=== PATIENT | female | born 1990 | race Caucasian/White ===

== ENCOUNTER 2018-11-27 14:53 | Emergency (ER) | payer SELFPAY ==
[2018-11-27 15:57] LABS: Urine Blood 3+ (NEG); Urine Glucose NEGATIVE (NEG); Urine Protein 1+ (NEG); Urine pH 5.5 (5.0-7.0)
--- NOTE | 2018-11-27 16:02 | ER ---
Nurse's Notes [facility] Name: Eli Cisneros Age: 28 yrs Sex: Female : 1990 Arrival Date: 11/27/2018 Time: 14:57 Bed 15 Private MD: Diagnosis: Low back pain Presentation: 11/27 15:27 Presenting complaint: Patient states: low back pain that began 1 week ago. Transition aa5 of care: patient was not received from another setting of care. Onset of symptoms was November 19, 2018. Risk Assessment: Do you want to hurt yourself or someone else? Patient reports no desire to harm self or others. Initial Sepsis Screen: Does the patient meet any 2 criteria? No. Patient's initial sepsis screen is negative. Does the patient have a suspected source of infection? No. Patient's initial sepsis screen is negative. Care prior to arrival: None. 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 - Social history:: Smoking status: Patient uses tobacco products, smokes one-half pack cigarettes per day. - Ebola Screening: : Patient denies exposure to infectious person Patient denies travel to an Ebola-affected area in the 21 days before illness onset. Screenin:00 Abuse screen: Denies threats or abuse. Denies injuries from another. Nutritional jl7 screening: No deficits noted. Tuberculosis screening: No symptoms or risk factors identified. Fall Risk None identified. Assessment: 16:00 General: Appears in no apparent distress. uncomfortable, Behavior is calm, cooperative, jl7 appropriate for age. Pain: Complains of pain in right low back and left low back and lumbar area Pain currently is 10 out of 10 on a pain scale. Neuro: Level of Consciousness is awake, alert, obeys commands, Oriented to person, place, time, situation. Cardiovascular: Patient's skin is warm and dry. Respiratory: Airway is patent Respiratory effort is even, unlabored, Respiratory pattern is regular, symmetrical. Derm: Skin is pink, warm \T\ dry. Musculoskeletal: Reports pain in lumbar area. 16:10 Reassessment: Pt will be discharged after shot time. jl7 Vital Signs: 15:28 Pulse 75; Resp 15; Temp 97.8(TE); Pulse Ox 98% on R/A; Weight 90.72 kg; Height 5 ft. 1 aa5 in. (154.94 cm); Pain 10/10; 15:31 BP 123 / 69; ss 15:28 Body Mass Index 37.79 (90.72 kg, 154.94 cm) aa5 ED Course: 14:57 Patient arrived in ED. rg4 15:28 Triage completed. aa5 15:28 Arm band placed on right wrist. aa5 15:34 Tahir Yoo PA is PHCP. jr8 15:34 Nathen Olivares MD is Attending Physician. jr8 15:58 Merced Espinal RN is Primary Nurse. jl7 16:00 Patient has correct armband on for positive identification. Bed in low position. Call jl7 light in reach. Side rails up X 1. 16:10 No provider procedures requiring assistance completed. Patient did not have IV access jl7 during this emergency room visit. Administered Medications: 14:05 Drug: TORadol - Ketorolac 15 mg Route: IM; Site: right deltoid; jl7 16:30 Follow up: Response: No adverse reaction jl7 14:07 Drug: Decadron 10 mg Route: IM; Site: left deltoid; jl7 16:30 Follow up: Response: No adverse reaction jl7 16:08 Drug: [place] 10 mg-325 mg 1 tabs Route: PO; jl7 16:30 Follow up: Response: No adverse reaction jl7 Outcome: 16:02 Discharge ordered by . jr8 16:30 Discharged to home ambulatory, with family. jl7 16:30 Condition: stable 16:30 Discharge instructions given to patient, family, Instructed on discharge instructions, follow up and referral plans. medication usage, Demonstrated understanding of instructions, follow-up care, medications, Prescriptions given X 3. 16:30 Patient left the ED. jl7 Signatures: Aida Orellana RN RN aa5 Bere Cooper RN RN Tahir Yoo PA PA jr8 Tammi Solorio4 Merced Espinal, RN RN jl7 Corrections: (The following items were deleted from the chart) 16:42 16:41 Patient left the ED. cash jl7
--- NOTE | 2018-11-27 16:02 | EDPHYS ---
Physician Documentation [facility] Name: Eli Cisneros Age: 28 yrs Sex: Female : 1990 Arrival Date: 11/27/2018 Time: 14:57 Bed 15 Private MD: ED Physician Nathen Olivares HPI: 11/27 15:55 This 28 yrs old Female presents to ER via Ambulatory with complaints of Back jr8 Pain. 15:55 The patient presents with pain that is acute. The symptoms are located in the low back. jr8 Onset: The symptoms/episode began/occurred acutely, 1 day(s) ago. Location: bilateral legs. Associated signs and symptoms: Pertinent negatives: abdominal pain, constipation, fever, hematuria, incontinence, numbness, tingling, urinary retention, weakness. The problem was sustained when lifting heavy object, from twisting. Modifying factors: the patient symptoms are aggravated by any movement. Severity of symptoms: in the emergency department the symptoms a " 8" out of "10". The patient has not experienced similar symptoms in the past. The patient has not recently seen a physician. 15:55 Patient reports that yesterday she was lifting a heavy object while squatting down, she jr8 then fell backwards and caught herself, twisting. Patient now has low lumbar pain worse with mvt with out any changes in strength or sensation. . 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 - Social history:: Smoking status: Patient uses tobacco products, smokes one-half pack cigarettes per day. - Ebola Screening: : Patient denies exposure to infectious person Patient denies travel to an Ebola-affected area in the 21 days before illness onset. ROS: 15:55 Constitutional: Negative for fever, chills, and weight loss, Cardiovascular: Negative jr8 for chest pain, palpitations, and edema, Respiratory: Negative for shortness of breath, cough, wheezing, and pleuritic chest pain, Abdomen/GI: Negative for abdominal pain, nausea, vomiting, diarrhea, and constipation, MS/Extremity: Negative for injury and deformity, Skin: Negative for injury, rash, and discoloration. 15:55 Back: Positive for pain at rest, pain with movement, radiated pain, Negative for injury or acute deformity, decreased range of motion. Exam: 15:58 Constitutional: This is a well developed, well nourished patient who is awake, alert, jr8 and in no acute distress. Head/Face: Normocephalic, atraumatic. Neck: Trachea midline, no thyromegaly or masses palpated, and no cervical lymphadenopathy. Supple, full range of motion without nuchal rigidity, or vertebral point tenderness. No Meningismus. Cardiovascular: Regular rate and rhythm with a normal S1 and S2. No gallops, murmurs, or rubs. Normal PMI, no JVD. No pulse deficits. Respiratory: Lungs have equal breath sounds bilaterally, clear to auscultation and percussion. No rales, rhonchi or wheezes noted. No increased work of breathing, no retractions or nasal flaring. Abdomen/GI: Soft, non-tender, with normal bowel sounds. No distension or tympany. No guarding or rebound. No evidence of tenderness throughout. MS/ Extremity: Pulses equal, no cyanosis. Neurovascular intact. Full, normal range of motion. Neuro: Awake and alert, GCS 15, oriented to person, place, time, and situation. Cranial nerves II-XII grossly intact. Motor strength 5/5 in all extremities. Sensory grossly intact. Cerebellar exam normal. Normal gait. 15:58 Back: pain, that is moderate, of the lumbar area, left low back and right low back, ROM is painful, with all movement, normal spinal alignment noted, CVA tenderness, is absent, muscle spasm, is not present, Straight leg raises: pain bilaterally. Vital Signs: 15:28 Pulse 75; Resp 15; Temp 97.8(TE); Pulse Ox 98% on R/A; Weight 90.72 kg; Height 5 ft. 1 aa5 in. (154.94 cm); Pain 10/10; 15:31 BP 123 / 69; ss 15:28 Body Mass Index 37.79 (90.72 kg, 154.94 cm) aa5 MDM: 15:34 Patient medically screened. jr8 15:59 Differential diagnosis: chronic back pain, Osteoarthritis sprain. Data reviewed: vital jr8 signs, nurses notes, lab test result(s), urinalysis. 11/27 15:50 Order name: Urine Dipstick--Ancillary (enter results); Complete Time: 16:03 eb 11/27 15:50 Order name: Urine --Ancillary (enter results); Complete Time: 16:03 eb Administered Medications: 14:05 Drug: TORadol - Ketorolac 15 mg Route: IM; Site: right deltoid; jl7 16:30 Follow up: Response: No adverse reaction jl7 14:07 Drug: Decadron 10 mg Route: IM; Site: left deltoid; jl7 16:30 Follow up: Response: No adverse reaction jl7 16:08 Drug: [place] 10 mg-325 mg 1 tabs Route: PO; jl7 16:30 Follow up: Response: No adverse reaction jl7 Disposition: 11/28 09:02 Co-signature as Attending Physician, Nathen Olivares MD I agree with the assessment and eleanor plan of care. Disposition: 11/27/18 16:02 Discharged to Home. Impression: Low back pain. - Condition is Stable. - Discharge Instructions: Back Pain, Adult, Heat Therapy. - Prescriptions for Ibuprofen 800 mg Oral Tablet - take 1 tablet by ORAL route every 12 hours As needed take with food; 20 tablet. Zanaflex 4 mg Oral Tablet - take 1 tablet by ORAL route every 8 hours As needed; 20 tablet. Medrol (Moi) 4 mg Oral Tablets, Dose Pack - take 1 tablet by ORAL route as directed - follow package instructions; 1 packet. - Medication Reconciliation Form, Thank You Letter, Antibiotic Education, Prescription Opioid Use form. - Follow up: Private Physician; When: 2 - 3 days; Reason: If symptoms return, Recheck today's complaints, Continuance of care, Re-evaluation by your physician. - Problem is new. - Symptoms are unchanged. Signatures: Dispatcher [employer] Nathen Maharaj MD MD cha Calderon, Audri, RN RN aa5 Tahir Yoo PA PA jr8 Merced Espinal RN RN jl7 Corrections: (The following items were deleted from the chart) 11/27 16:41 16:02 11/27/2018 16:02 Discharged to Home. Impression: Low back pain. Condition is jl7 Stable. Forms are Medication Reconciliation Form, Thank You Letter, Antibiotic Education, Prescription Opioid Use. Follow up: Private Physician; When: 2 - 3 days; Reason: If symptoms return, Recheck today's complaints, Continuance of care, Re-evaluation by your physician. Problem is new. Symptoms are unchanged. jr8
[2018-11-27] MEDS ORDERED: KETOROLAC 30 MG/ML INJ ONE (16:14)
[2018-11-27] MEDS ORDERED: DEXAMETHASONE 10 MG/ML VIAL ONE (16:14)
[2018-11-27] MEDS ORDERED: HYDROCODONE/APAP 10/325 TAB ONE (16:14)
== END 2018-11-27 16:41 | disposition home or self-care (01) ==
LOC: ER 14:53
DX: M54.5 Low back pain (principal); F17.210 Nicotine dependence, cigarettes, uncomplicated; Z88.8 Allergy status to other drugs, medicaments and biological substances
CPT/HCPCS: 81003; 81025; 96372; 99283; J1100

== ENCOUNTER 2019-11-17 19:55 | Emergency (ER) | payer SELFPAY ==
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
--- NOTE | 2019-11-17 22:05 | ER ---
Nurse's Notes [facility] Name: Eli Cisneros Age: 29 yrs Sex: Female : 1990 Arrival Date: 11/17/2019 Time: 19:57 Bed 24 Private MD: Diagnosis: Acute upper respiratory infection, unspecified Presentation: 11/16 20:18 Chief complaint: Patient states: she has had a cough, fever, body aches, sore throat x bb 3 days, temp has been up to 103. Coronavirus screen: Surgical mask placed on patient. Patient moved to private room, placed in contact and droplet isolation with eye protection until further assessment. Patient reports a cough. Patient reports a measured and/or subjective temperature greater than 100.4F. Patient denies travel on a cruise ship or to a country the [facility] currently lists as an affected area. Patient denies contact with known and/or suspected case of COVID-19. Ebola Screen: No symptoms or risks identified at this time. Initial Sepsis Screen: Does the patient meet any 2 criteria? No. Patient's initial sepsis screen is negative. Does the patient have a suspected source of infection? No. Patient's initial sepsis screen is negative. Risk Assessment: Do you want to hurt yourself or someone else? Patient reports no desire to harm self or others. Onset of symptoms was November 15, 2019. 20:18 Method Of Arrival: Ambulatory bb 20:18 Acuity: AMBER 3 bb 20:25 Note pt placed on droplet precautions. 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 - Social history:: Smoking status: Patient reports the use of cigarette tobacco products, smokes one-half pack cigarettes per day. Screenin:52 Abuse screen: Denies threats or abuse. Denies injuries from another. Nutritional lp1 screening: No deficits noted. Tuberculosis screening: No symptoms or risk factors identified. Fall Risk None identified. Assessment: 20:30 General: Appears in no apparent distress. Behavior is calm, cooperative, appropriate lp1 for age. Pain: Complains of pain in generalized body Quality of pain is described as aching. Neuro: No deficits noted. Cardiovascular: Patient's skin is warm and dry. Respiratory: Reports cough that is non-productive, Airway is patent Respiratory effort is even, unlabored, Respiratory pattern is regular, Breath sounds are clear bilaterally. Onset: The symptoms/episode began/occurred 3 days ago. GI: Abdomen is obese. : No signs and/or symptoms were reported regarding the genitourinary system. EENT: Throat is pink. Derm: Skin is pink, warm \T\ dry. Musculoskeletal: No deficits noted. 21:45 Reassessment: Patient appears in no apparent distress at this time. Patient is alert, lp1 oriented x 3, equal unlabored respirations, skin warm/dry/pink. Aware of waiting for radiologist to look at x-ray. 22:14 Reassessment: Patient is alert, oriented x 3, equal unlabored respirations, skin bb warm/dry/pink. pt verbalized understanding of and agrees to plan of care discharge instructions given pt ambulated with steady gait to exit. Vital Signs: 20:18 BP 139 / 71; Pulse 99; Resp 20 S; Temp 98.6(O); Pulse Ox 98% on R/A; Weight 104.33 kg bb (R); Height 5 ft. 1 in. (154.94 cm) (R); Pain 7/10; 22:14 BP 139 / 64; Pulse 92; Resp 18 S; Temp 98.7(O); Pulse Ox 96% on R/A; bb 20:18 Body Mass Index 43.46 (104.33 kg, 154.94 cm) bb ED Course: 19:57 Patient arrived in ED. mr 20:09 Hammad Petit PA is PHCP. jmm 20:09 Nathen Olivares MD is Attending Physician. jmm 20:21 Triage completed. bb 20:24 Arm band placed on Patient placed in an exam room, on a stretcher, on pulse oximetry. bb 20:30 Patient has correct armband on for positive identification. Placed in gown. lp1 21:05 Chest Single View XRAY In Process Unspecified. EDMS 21:43 Loreta Fox, RN is Primary Nurse. lp1 22:14 No provider procedures requiring assistance completed. Patient did not have IV access bb during this emergency room visit. Administered Medications: No medications were administered Outcome: 22:04 Discharge ordered by MD. nuñez 22:14 Discharged to home ambulatory. bb 22:14 Condition: stable 22:14 Discharge instructions given to patient, Instructed on discharge instructions, follow up and referral plans. medication usage, Demonstrated understanding of instructions, follow-up care, medications, Prescriptions given X 1. 22:16 Patient left the ED. bb Signatures: Dispatcher [employer] EDMS Hammad Petit PA PA jmm Rivera, Mary mr Vernell Moore, RN RN bb Loreta Fox, RN RN lp1 Corrections: (The following items were deleted from the chart) 20:25 20:24 Social history: Smoking status: unknown jenny alvarado
--- NOTE | 2019-11-17 22:05 | EDPHYS ---
Physician Documentation [facility] Name: Eli Cisneros Age: 29 yrs Sex: Female : 1990 Arrival Date: 11/17/2019 Time: 19:57 Bed 24 Private MD: ED Physician Nathen Olivares HPI: 11/16 20:21 This 29 yrs old Female presents to ER via Ambulatory with complaints of jmm Cough, Fever, Sore Throat, Body aches. 20:21 The patient or guardian reports cough. Onset: The symptoms/episode began/occurred jmm gradually, 3 day(s) ago. Modifying factors: The symptoms are alleviated by nothing, the symptoms are aggravated by nothing. Associated signs and symptoms: Pertinent positives: diarrhea, fever, sore throat. This is a 29 year old female with no chronic medical conditions that presents to the ED with complaints of sore throat, cough, chills, diarrhea, fever beginning 3 days ago. Denies recent travel, denies infectious exposure to COVID-19 patient. . [employer]: 20:24 LMP 11/17/2019 bb Historical: - Allergies: 20:24 Ceclor; bb - Home Meds: 20:24 None [Active]; bb - PMHx: 20:24 None; bb - PSHx: 20:24 Hysterectomy; Tonsillectomy; bb - Immunization history:: Adult Immunizations up to date. - Social history:: Smoking status: Patient reports the use of cigarette tobacco products, smokes one-half pack cigarettes per day. ROS: 20:21 Constitutional: jmm 20:21 ENT: Positive for sore throat. 20:21 Respiratory: Positive for dyspnea on exertion. 20:21 Abdomen/GI: Positive for diarrhea. 20:21 All other systems are negative. Exam: 20:21 Constitutional: This is a well developed, well nourished patient who is awake, alert, jmm and in no acute distress. Head/Face: atraumatic. Eyes: EOMI, no conjunctival erythema appreciated ENT: Moist Mucus Membranes Neck: Trachea midline, Supple Chest/axilla: Normal chest wall appearance and motion. Cardiovascular: Regular rate and rhythm. No edema appreciated 20:21 Abdomen/GI: Non distended, soft Skin: General appearance color normal MS/ Extremity: Moves all extremities, no obvious deformities appreciated, no edema noted to the lower extremities Neuro: Awake and alert, normal gait Psych: Behavior is normal, Mood is normal, Patient is cooperative and pleasant 20:21 Respiratory: the patient does not display signs of respiratory distress, Respirations: normal, Breath sounds: wheezing: that is mild, is scattered. Vital Signs: 20:18 BP 139 / 71; Pulse 99; Resp 20 S; Temp 98.6(O); Pulse Ox 98% on R/A; Weight 104.33 kg bb (R); Height 5 ft. 1 in. (154.94 cm) (R); Pain 7/10; 22:14 BP 139 / 64; Pulse 92; Resp 18 S; Temp 98.7(O); Pulse Ox 96% on R/A; bb 20:18 Body Mass Index 43.46 (104.33 kg, 154.94 cm) MDM: 20:12 Patient medically screened. the [facility] 22:02 Data reviewed: vital signs, nurses notes. Counseling: I had a detailed discussion with [facility] the patient and/or guardian regarding: the historical points, exam findings, and any diagnostic results supporting the discharge/admit diagnosis, lab results, radiology results, the need for outpatient follow up, to return to the emergency department if symptoms worsen or persist or if there are any questions or concerns that arise at home. ED course: Patient is alert and non toxic in appearance. No signs of resp distress. CXR clear. Patient is given strict return precautions. Patient understood and agrees with the plan of care. . 11/16 20:21 Order name: Flu; Complete Time: 21:03 [facility] 11/16 20:21 Order name: Strep; Complete Time: 21:03 [facility] 11/16 20:21 Order name: Chest Single View XRAY [facility] 11/16 20:55 Order name: Throat Culture EDMS Administered Medications: No medications were administered Disposition: 11/17 05:51 Co-signature as Attending Physician, Nathen Olivares MD I agree with the assessment and the [facility] plan of care. Disposition: 11/17/19 22:04 Discharged to Home. Impression: Acute upper respiratory infection, unspecified. - Condition is Stable. - Discharge Instructions: Upper Respiratory Infection, Adult. - Prescriptions for Albuterol Sulfate 90 mcg/actuation - inhale 1-2 puff by INHALATION route every 4-6 hours; 1 Inhaler. - Medication Reconciliation Form, Thank You Letter, Antibiotic Education, Prescription Opioid Use form. - Follow up: Private Physician; When: 2 - 3 days; Reason: Recheck today's complaints, Continuance of care, Re-evaluation by your physician. Signatures: Dispatcher [employer] Nathen Maharaj MD MD cha Mickail, Joel, PA PA jmm Ballard, Brenda RN RN bb Corrections: (The following items were deleted from the chart) 11/16 20:25 20:24 Social history: Smoking status: unknown bb bb 22:16 22:04 11/17/2019 22:04 Discharged to Home. Impression: Acute upper respiratory bb infection, unspecified. Condition is Stable. Forms are Medication Reconciliation Form, Thank You Letter, Antibiotic Education, Prescription Opioid Use. Follow up: Private Physician; When: 2 - 3 days; Reason: Recheck today's complaints, Continuance of care, Re-evaluation by your physician. joaquin
--- NOTE | 2019-11-17 22:31 | RAD REPORT ---
EXAM DESCRIPTION: RAD - Chest Single View - 11/17/2019 9:04 pm CLINICAL HISTORY: fever, cough TECHNIQUE: AP portable chest image was obtained 11/17/2019 9:04 pm . FINDINGS: No focal infiltrate identifiable. No failure, volume overload or edema. Heart and vasculat ure are normal. No measurable pleural effusion and no pneumothorax. No acute bony abnormality seen. N o acute aortic findings suspected. IMPRESSION: No acute cardiopulmonary process.
[2019-11-17 22:45] VITALS: BP 139/64; TEMP 98.7; O2SAT 96
== END 2019-11-17 22:16 | disposition home or self-care (01) ==
LOC: ER 19:55
DX: J06.9 Acute upper respiratory infection, unspecified (principal); F17.210 Nicotine dependence, cigarettes, uncomplicated; Z88.8 Allergy status to other drugs, medicaments and biological substances
CPT/HCPCS: 71045; 87070; 87081; 87804; 99283

== ENCOUNTER 2020-06-16 18:35 | Emergency (ER) | payer SELFPAY ==
[2020-06-16] MEDS ORDERED: FAMOTIDINE 20 MG/2 ML VIAL IV ONE ×2 (19:15→19:21)
[2020-06-16] MEDS ORDERED: ONDANSETRON 4 MG/2 ML VIAL ONE ×2 (19:15→19:21)
[2020-06-16 19:21] LABS: Absolute Lymphocytes (CBC) 3.8 K/uL (0.7-4.9); Hematocrit 40.7 % (36.0-45.0); Lymphocytes % 33.9 % (15.3-44.8); MPV 8.2 fL (7.6-11.3); RBC Red Blood Cell Count 5.33 M/uL (3.86-4.86)
[2020-06-16 19:37] LABS: ALT/SGPT 66 U/L (12-78); AST/SGOT 44 U/L (15-37); Albumin 3.6 g/dL (3.4-5.0); Alkaline Phosphatase 111 U/L (45-117); BUN Blood Urea Nitrogen 8 mg/dL (7-18); Bicarbonate 28 mmol/L (21-32); Bilirubin Direct < 0.1 mg/dL (0-0.2); Bilirubin Total 0.3 mg/dL (0.2-1.0); Glucose Level 82 mg/dL (74-106); Lipase 48 U/L (73-393); Potassium 3.5 mmol/L (3.5-5.1); Protein, Total 7.8 g/dL (6.4-8.2); Sodium Level 139 mmol/L (136-145)
[2020-06-16 19:46] LABS: Urine Blood TRACE (NEG); Urine Glucose NEGATIVE (NEG); Urine Protein NEGATIVE (NEG); Urine Specific Gravity 1.025 (1.005-1.030); Urine pH 6.5 (5.0-7.0)
--- NOTE | 2020-06-16 20:23 | ER ---
Nurse's Notes [facility] Name: Eli Cisneros Age: 29 yrs Sex: Female : 1990 Arrival Date: 06/16/2020 Time: 18:36 Bed 5 Private MD: Diagnosis: Epigastric pain Presentation: 06/16 18:42 Chief complaint: Patient states: Intermittent episodes of N/V that began over 2 months ss ago with random episodes of epigastric pains. Pt states that over the past two weeks the episodes have been become more frequent. Coronavirus screen: Client denies travel out of the [place] in the last 14 days. Ebola Screen: Patient denies exposure to infectious person. Patient denies travel to an Ebola-affected area in the 21 days before illness onset. Initial Sepsis Screen: Does the patient meet any 2 criteria? No. Patient's initial sepsis screen is negative. Does the patient have a suspected source of infection? No. Patient's initial sepsis screen is negative. Risk Assessment: Do you want to hurt yourself or someone else? Patient reports no desire to harm self or others. Onset of symptoms was April 2020. 18:42 Method Of Arrival: Ambulatory ss 18:42 Acuity: AMBER 3 ss Triage Assessment: 18:45 General: Appears in no apparent distress. uncomfortable, Behavior is cooperative, bp appropriate for age, anxious. Pain: Complains of pain in abdomen. EENT: No deficits noted. Neuro: No deficits noted. Cardiovascular: No deficits noted. Respiratory: No deficits noted. GI: Reports nausea, vomiting. : No signs and/or symptoms were reported regarding the genitourinary system. Derm: No deficits noted. Musculoskeletal: No deficits noted. 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 - Social history:: Smoking status: Patient reports the use of cigarette tobacco products, smokes one-half pack cigarettes per day. Screenin:35 Abuse screen: Denies threats or abuse. Nutritional screening: No deficits noted. ll2 Tuberculosis screening: No symptoms or risk factors identified. Fall Risk None identified. Assessment: 20:34 General: Appears in no apparent distress. Behavior is calm, cooperative, appropriate ll2 for age. Pain: Complains of pain in epigastric area. Neuro: Level of Consciousness is awake, alert, obeys commands, Oriented to person, place, time, situation. Cardiovascular: Capillary refill < 3 seconds Patient's skin is warm and dry. Respiratory: Airway is patent Respiratory effort is even, unlabored, Respiratory pattern is regular, symmetrical. GI: Abdomen is flat. : No signs and/or symptoms were reported regarding the genitourinary system. EENT: No signs and/or symptoms were reported regarding the EENT system. Derm: Skin is intact, is healthy with good turgor, Skin is dry, Skin is pink, warm \T\ dry. Skin temperature is warm. Musculoskeletal: Circulation, motion, and sensation intact. Range of motion: intact in all extremities. Vital Signs: 18:42 BP 132 / 80; Pulse 92; Resp 16; Temp 98.6(TE); Pulse Ox 98% on R/A; Weight 114.31 kg; ss Height 5 ft. 1 in. (154.94 cm); Pain 0/10; 20:28 BP 114 / 71; Pulse 85; Resp 19; Pulse Ox 99% ; rr5 18:42 Body Mass Index 47.61 (114.31 kg, 154.94 cm) ED Course: 18:36 Patient arrived in ED. ag5 18:38 Nathen Wilkes PA is PHCP. cp 18:38 Daniel Patten MD is Attending Physician. cp 18:45 Triage completed. ss 18:46 Arm band placed on right wrist. ss 18:57 Pranav Maddox, ILENE is Primary Nurse. bp 19:06 Inserted saline lock: 20 gauge in right forearm, using aseptic technique. Blood ea collected. 20:24 US Abdomen Limited In Process Unspecified. EDMS 20:28 No provider procedures requiring assistance completed. IV discontinued, intact, rr5 bleeding controlled, No redness/swelling at site. Pressure dressing applied. 20:36 Patient has correct armband on for positive identification. Bed in low position. Call ll2 light in reach. Side rails up X 1. Pulse ox on. NIBP on. Administered Medications: 19:15 Drug: Pepcid 20 mg Route: IVP; Site: right antecubital; ea 19:15 Drug: Zofran (Ondansetron) 4 mg Route: IVP; Site: right antecubital; ea Outcome: 20:23 Discharge ordered by . cp 20:36 Discharged to home ambulatory. ll2 20:36 Condition: stable 20:36 Discharge instructions given to patient, Instructed on discharge instructions, follow up and referral plans. medication usage, Demonstrated understanding of instructions, follow-up care, medications, Prescriptions given X 2. 20:36 Patient left the ED. ll2 Signatures: Dispatcher [employer] EDMS Bere Cooper RN RN ss Nathen Wilkes PA PA cp Antunez, Elena RN RN Pranav Fagan RN RN bp Roque, Raymond, RN RN rr5 Ailyn Lemos Frances Barnes RN RN ll2 Corrections: (The following items were deleted from the chart) 18:47 18:46 PSHx: Hysterectomy; ss ss
--- NOTE | 2020-06-16 20:24 | EDPHYS ---
Physician Documentation [facility] Name: Eli Cisneros Age: 29 yrs Sex: Female : 1990 Arrival Date: 06/16/2020 Time: 18:36 Bed 5 Private MD: ED Physician Daniel Patten HPI: 06/16 18:50 This 29 yrs old Female presents to ER via Ambulatory with complaints of cp Nausea/Vomiting, Abdominal Pain. 18:50 The patient presents with abdominal pain in the epigastric area. cp 18:50 Onset: The symptoms/episode began/occurred 2 month(s) ago, and improved today. The cp symptoms radiate to back. Associated signs and symptoms: Pertinent positives: nausea and vomiting, Pertinent negatives: anorexia, chest pain, constipation, diarrhea, dysuria. The symptoms are described as intermittent. Modifying factors: The symptoms are alleviated by nothing, the symptoms are aggravated by nothing. Severity of pain: in the emergency department the pain has improved moderately. 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 - Social history:: Smoking status: Patient reports the use of cigarette tobacco products, smokes one-half pack cigarettes per day. ROS: 19:00 Constitutional: Negative for body aches, chills, fever, poor PO intake. cp 19:00 Eyes: Negative for injury, pain, redness, and discharge. cp 19:00 ENT: Negative for ear pain, sore throat, difficulty swallowing, difficulty handling secretions. 19:00 Cardiovascular: Negative for chest pain, palpitations. 19:00 Respiratory: Negative for cough, shortness of breath, wheezing. 19:00 Abdomen/GI: Positive for abdominal pain, nausea and vomiting, Negative for diarrhea, constipation, anorexia, dysphagia, black/tarry stool, rectal bleeding. 19:00 Back: Positive for radiated pain. 19:00 : Negative for urinary symptoms. 19:00 Neuro: Negative for altered mental status, headache. 19:00 All other systems are negative. Exam: 19:05 Constitutional: The patient appears in no acute distress, alert, awake, non-toxic, well cp developed, well nourished, obese. 19:05 Head/Face: Normocephalic, atraumatic. cp 19:05 Eyes: Periorbital structures: appear normal, Conjunctiva: normal, no exudate, no injection, Sclera: no appreciated abnormality, Lids and lashes: appear normal, bilaterally. 19:05 ENT: External ear(s): are unremarkable, Nose: is normal, Mouth: Lips: moist, Oral mucosa: moist, Posterior pharynx: is normal, airway is patent. 19:05 Chest/axilla: Inspection: normal, Palpation: is normal, no crepitus, no tenderness. 19:05 Cardiovascular: Rate: normal, Rhythm: regular. 19:05 Respiratory: the patient does not display signs of respiratory distress, Respirations: normal, no use of accessory muscles, no retractions, labored breathing, is not present, Breath sounds: are clear throughout, no decreased breath sounds. 19:05 Abdomen/GI: Inspection: abdomen appears normal, Bowel sounds: active, all quadrants, Palpation: soft, in all quadrants, mild abdominal tenderness, in the epigastric area, rebound tenderness, is not appreciated, voluntary guarding, is not appreciated, involuntary guarding, is not appreciated. 19:05 Back: pain, that is very mild, of the left scapular area and right scapular area, ROM is normal. 19:05 Skin: no rash present. 19:05 Neuro: Orientation: to person, place \T\ time. Mentation: is normal, Motor: moves all fours, strength is normal, Gait: is steady. Vital Signs: 18:42 BP 132 / 80; Pulse 92; Resp 16; Temp 98.6(TE); Pulse Ox 98% on R/A; Weight 114.31 kg; ss Height 5 ft. 1 in. (154.94 cm); Pain 0/10; 20:28 BP 114 / 71; Pulse 85; Resp 19; Pulse Ox 99% ; rr5 18:42 Body Mass Index 47.61 (114.31 kg, 154.94 cm) ss MDM: 19:04 Patient medically screened. cp 20:22 Data reviewed: vital signs, nurses notes, lab test result(s), radiologic studies, cp ultrasound, and as a result, I will discharge patient. 20:22 Special discussion: Based on the patient's Hx, exam, and Dx evaluation, there is no cp indication for emergent surgery or inpatient Tx. It is understood by the patient/guardian that if the Sx's persist or worsen they need to return immediately for re-evaluation. 06/16 18:42 Order name: Basic Metabolic Panel; Complete Time: 19:51 cp 06/16 18:42 Order name: CBC with Diff; Complete Time: 19:24 cp 06/16 19:25 Interpretation: Normal except: WBC 11.1; RBC 5.33; MCV 76.4; MCH 25.8; RDW 16.3. cp 06/16 18:42 Order name: Hepatic Function; Complete Time: 19:51 cp 06/16 19:59 Interpretation: Normal except: AST 44; GLOB 4.2; A/G 0.9. cp 06/16 18:42 Order name: Lipase; Complete Time: 19:51 cp 06/16 19:30 Order name: Urine --Ancillary (enter results); Complete Time: 19:51 tt3 06/16 19:30 Order name: Urine Dipstick--Ancillary (enter results); Complete Time: 19:51 tt3 06/16 18:42 Order name: IV Saline Lock; Complete Time: 19:14 cp 06/16 18:42 Order name: Labs collected and sent; Complete Time: 19:14 cp 06/16 18:42 Order name: US Abdomen Limited 06/16 18:42 Order name: Urine Dipstick-Ancillary (obtain specimen); Complete Time: 19:20 cp 06/16 18:42 Order name: Urine Test (obtain specimen); Complete Time: 19:20 cp Administered Medications: 19:15 Drug: Pepcid 20 mg Route: IVP; Site: right antecubital; ea 19:15 Drug: Zofran (Ondansetron) 4 mg Route: IVP; Site: right antecubital; ea Disposition: 06/17 14:52 Co-signature as Attending Physician, Daniel Patten MD I agree with the assessment and kdr plan of care. Disposition: 06/16/20 20:23 Discharged to Home. Impression: Epigastric pain. - Condition is Stable. - Discharge Instructions: Gastritis, Adult, Gastroesophageal Reflux Disease, Adult. - Prescriptions for Protonix 40 mg Oral Tablet - take 1 tablet by ORAL route once daily; 30 tablet. Zofran 4 mg Oral Tablet - take 1 tablet by ORAL route every 12 hours As needed; 20 tablet. - Medication Reconciliation Form, Thank You Letter, Antibiotic Education, Prescription Opioid Use form. - Follow up: Private Physician; When: 2 - 3 days; Reason: Worsening of condition. - Problem is new. - Symptoms have improved. Signatures: Dispatcher [employer] EDKS Daniel Patten MD MD [facility] Bere Cooper RN RN ss Nathen Wilkes PA PA cp Janelle Olson RN RN ea Frances Adler RN RN ll2 Corrections: (The following items were deleted from the chart) 06/16 18:47 18:46 PSHx: Hysterectomy; [facility] 20:36 20:23 06/16/2020 20:23 Discharged to Home. Impression: Epigastric pain. Condition is ll2 Stable. Forms are Medication Reconciliation Form, Thank You Letter, Antibiotic Education, Prescription Opioid Use. Follow up: Private Physician; When: 2 - 3 days; Reason: Worsening of condition. Problem is new. Symptoms have improved. cp
--- NOTE | 2020-06-16 20:55 | RAD REPORT ---
EXAM DESCRIPTION: US - Abdomen Exam Limited - 06/16/2020 8:23 pm CLINICAL HISTORY: EPIGASTRIC PAIN COMPARISON: No comparisons FINDINGS: No gallstones, sludge or other abnormalities within the gallbladder lumen. There is no wal l thickening or pericholecystic fluid. No common duct stone or biliary tree dilatation identified. Partially imaged liver shows increased echogenicity typical for fatty infiltration. Liver is not full y assessed. IMPRESSION: Normal gallbladder and biliary tree ultrasound.
[2020-06-16 22:10] VITALS: TEMP 98.6
[2020-06-16 22:11] VITALS: BP 114/71; O2SAT 99
== END 2020-06-16 20:36 | disposition home or self-care (01) ==
LOC: ER 18:35
DX: R10.13 Epigastric pain (principal); R11.2 Nausea with vomiting, unspecified; F17.210 Nicotine dependence, cigarettes, uncomplicated; Z88.1 Allergy status to other antibiotic agents
CPT/HCPCS: 36415; 76705; 80048; 80076; 81003; 81025; 83690; 85025; 96374; 96375; 99284; J2405

== ENCOUNTER 2020-08-01 13:32 | Emergency (ER) | payer SELFPAY ==
[2020-08-01 17:11] LABS: Urine Blood TRACE (NEG); Urine Glucose NEGATIVE (NEG); Urine Protein NEGATIVE (NEG)
[2020-08-01] MEDS ORDERED: IPRATROPIUM BROM 0.5MG/2.5ML ONE (17:24)
[2020-08-01] MEDS ORDERED: dexAMETHasone 10 MG/ML VIAL ONE (17:24)
[2020-08-01] MEDS ORDERED: ALBUTEROL 2.5 MG/3 ML NEB SOL ONE (17:25)
--- NOTE | 2020-08-01 17:27 | RAD REPORT ---
EXAM DESCRIPTION: RAD - Chest Single View - 08/01/2020 5:14 pm CLINICAL HISTORY: cough, sob, chest pain COMPARISON: Portable November 2019 TECHNIQUE: AP portable chest image was obtained 08/01/2020 5:14 pm . FINDINGS: Lungs are clear. Heart and vasculature are normal. No measurable pleural effusion and no p neumothorax. No acute bony abnormality seen. No acute aortic findings suspected. IMPRESSION: No acute cardiopulmonary process. No significant change from comparison study.
--- NOTE | 2020-08-01 18:46 | ER ---
Nurse's Notes [facility] Name: Eli Cisneros Age: 29 yrs Sex: Female : 1990 Arrival Date: 08/01/2020 Time: 13:33 Bed 19 Private MD: Diagnosis: Acute bronchitis Presentation: 08/01 13:52 Chief complaint: Patient states: Intermittent, Non-radiating, midsternal CP started jl7 last night, reports dry cough, denies fever, denies N/V/D. Coronavirus screen: Client denies travel out of the [place] in the last 14 days. At this time, the client does not indicate any symptoms associated with coronavirus-19. Ebola Screen: No symptoms or risks identified at this time. Initial Sepsis Screen: Does the patient meet any 2 criteria? No. Patient's initial sepsis screen is negative. Does the patient have a suspected source of infection? No. Patient's initial sepsis screen is negative. Risk Assessment: Do you want to hurt yourself or someone else? Patient reports no desire to harm self or others. Onset of symptoms was July 31, 2020. Care prior to arrival: None. 13:52 Method Of Arrival: Ambulatory jl7 13:52 Acuity: AMBER 3 jl7 Triage Assessment: 13:55 General: Appears in no apparent distress. uncomfortable, Behavior is calm, cooperative, jl7 appropriate for age. Pain: Complains of pain in mid-sternal area Pain does not radiate. Pain currently is 5 out of 10 on a pain scale. Quality of pain is described as sharp, Pain began 1 day ago. Is intermittent. Cardiovascular: Patient's skin is warm and dry. 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 - Social history:: Smoking status: Patient reports the use of cigarette tobacco products, smokes one-half pack cigarettes per day. Screenin:35 Abuse screen: Denies threats or abuse. Denies injuries from another. Nutritional ca1 screening: No deficits noted. Tuberculosis screening: No symptoms or risk factors identified. Fall Risk IV access (20 points). Assessment: 16:35 General: Appears in no apparent distress. comfortable, Behavior is calm, cooperative, ca1 appropriate for age, Reports feeling ill for fatigue for 1-2 days. Pain: Complains of pain in mid-sternal area Pain does not radiate. Pain currently is 5 out of 10 on a pain scale. Quality of pain is described as sharp, Pain began 1 day ago. Neuro: Level of Consciousness is awake, alert, obeys commands, Oriented to person, place, time, situation. Cardiovascular: Heart tones S1 S2 present Capillary refill < 3 seconds Patient's skin is warm and dry. Rhythm is sinus rhythm. Respiratory: Reports shortness of breath on exertion cough that is non-productive, Airway is patent Respiratory effort is even, unlabored, Respiratory pattern is regular, symmetrical. GI: Abdomen is round non-distended, Bowel sounds present X 4 quads. Abd is soft and non tender X 4 quads. : No signs and/or symptoms were reported regarding the genitourinary system. EENT: No signs and/or symptoms were reported regarding the EENT system. Derm: Skin is intact, is healthy with good turgor, Skin is pink, warm \T\ dry. Musculoskeletal: Circulation, motion, and sensation intact. Capillary refill < 3 seconds. 17:30 Reassessment: Patient appears in no apparent distress at this time. Patient and/or ca1 family updated on plan of care and expected duration. Pain level reassessed. Patient is alert, oriented x 3, equal unlabored respirations, skin warm/dry/pink. 18:30 Reassessment: Patient appears in no apparent distress at this time. Patient and/or ca1 family updated on plan of care and expected duration. Pain level reassessed. Patient is alert, oriented x 3, equal unlabored respirations, skin warm/dry/pink. Vital Signs: 13:52 BP 148 / 83; Pulse 68; Resp 17; Temp 98.4; Pulse Ox 100% ; Weight 117.93 kg; Height 5 jl7 ft. 1 in. (154.94 cm); Pain 5/10; 16:35 BP 167 / 71; Pulse 77; Resp 19 S; Pulse Ox 100% on R/A; ca1 17:30 BP 143 / 97; Pulse 94; Resp 16 S; Pulse Ox 99% on R/A; ca1 18:30 BP 133 / 67; Pulse 82; Resp 17 S; Pulse Ox 100% on R/A; ca1 13:52 Body Mass Index 49.13 (117.93 kg, 154.94 cm) 7 ED Course: 13:33 Patient arrived in ED. ag5 13:54 Triage completed. jl7 13:55 Arm band placed on right wrist. Patient placed in waiting room, in view of staff [facility] members, Patient notified of wait time. EKG completed in triage. Results shown to MD. 16:25 Lucretia Jean, RN is Primary Nurse. ca1 16:27 Patient placed in an exam room, on a stretcher, on court recording monitor, on pulse oximetry. jl7 16:27 Urine collected: clean catch specimen, clear. [facility] 16:28 Hammad Petit PA is PHCP. [facility] 16:28 Daniel Patten MD is Attending Physician. [facility] 16:35 Patient has correct armband on for positive identification. Placed in gown. Bed in low ca1 position. Call light in reach. Side rails up X2. patient monitor on. Pulse ox on. NIBP on. Warm blanket given. 16:35 No provider procedures requiring assistance completed. Patient maintains SpO2 ca1 saturation greater than 95% on room air. 17:14 Chest Single View XRAY In Process Unspecified. EDMS 18:55 Patient did not have IV access during this emergency room visit. ca1 Administered Medications: 17:15 Drug: DuoNeb (3:1) (2.5 mg - 0.5 mg) 3 ml Route: Nebulizer; ca1 18:36 Follow up: Response: No adverse reaction; Marked relief of symptoms ca1 17:15 Drug: Decadron 10 mg Route: IM; Site: right gluteus; ca1 18:35 Follow up: Response: No adverse reaction ca1 Outcome: 18:45 Discharge ordered by . [facility] 18:55 Discharged to home ambulatory. ca1 18:55 Condition: stable 18:55 Discharge instructions given to patient, Instructed on discharge instructions, follow up and referral plans. medication usage, Demonstrated understanding of instructions, follow-up care, medications, Prescriptions given X 2. 18:55 Patient left the ED. ca1 Addendum: 08/05/2020 16:09 Addendum: COVID-19 Result: Negative result given to RN to notify pt. Attempted to i w contact pt regarding negative COVID-19 swab results. Left voice mail. 18:04 Addendum: COVID-19 Result: Negative result given to RN to notify pt. Notified pt of i w negative COVID 19 swab results. Pt advised that even with a negative test result they should remain in isolation until symptom free for 3 days without medication. Pt also advised to return to the ED for worsening symptoms. Signatures: Dispatcher [employer] EDMS Hammad Petit PA PA jmm Williams, Irene, RN RN iw Merced Espinal RN RN jl7 Lucretia Jean RN RN ca1 Ailyn Lemos ag5 Corrections: (The following items were deleted from the chart) 08/01 16:38 16:35 General: Appears in no apparent distress. comfortable, Behavior is calm, ca1 cooperative, appropriate for age, ca1
--- NOTE | 2020-08-01 18:46 | EDPHYS ---
Physician Documentation [facility] Name: Eli Cisneros Age: 29 yrs Sex: Female : 1990 Arrival Date: 08/01/2020 Time: 13:33 Bed 19 Private MD: ED Physician Daniel Patten HPI: 08/01 16:59 This 29 yrs old Female presents to ER via Ambulatory with complaints of Chest jmm Pain, Breathing Difficulty. 16:59 The patient or guardian reports cough. Onset: The symptoms/episode began/occurred jmm gradually. 17:05 Associated signs and symptoms: Pertinent positives: cough, shortness of breath, jmm Pertinent negatives: fever. Modifying factors: The patient symptoms are alleviated by nothing, the patient symptoms are aggravated by nothing. Associated signs and symptoms: Pertinent positives: chest pain, with cough, Pertinent negatives: fever, rhinorrhea, vomiting. The patient has not experienced similar symptoms in the past. 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 - Social history:: Smoking status: Patient reports the use of cigarette tobacco products, smokes one-half pack cigarettes per day. ROS: 17:05 Constitutional: Negative for fever, chills, and weight loss, Eyes: Negative for injury, jmm pain, redness, and discharge, ENT: Negative for injury, pain, and discharge, Neck: Negative for injury, pain, and swelling, Cardiovascular: Negative for chest pain, palpitations, and edema. 17:05 Neuro: Negative for headache, weakness, numbness, tingling, and seizure. 17:05 Cardiovascular: Positive for chest pain, with cough. 17:05 Respiratory: Positive for cough, shortness of breath, wheezing. 17:05 All other systems are negative. Exam: 17:05 Constitutional: This is a well developed, well nourished patient who is awake, alert, jmm and in no acute distress. Head/Face: atraumatic. Eyes: EOMI, no conjunctival erythema appreciated ENT: Moist Mucus Membranes Neck: Trachea midline, Supple Chest/axilla: Normal chest wall appearance and motion. Cardiovascular: Regular rate and rhythm. No edema appreciated Abdomen/GI: Non distended, soft Back: Normal ROM Skin: General appearance color normal MS/ Extremity: Moves all extremities, no obvious deformities appreciated, no edema noted to the lower extremities Neuro: Awake and alert, normal gait Psych: Behavior is normal, Mood is normal, Patient is cooperative and pleasant 17:05 Respiratory: the patient does not display signs of respiratory distress, Respirations: normal, Breath sounds: wheezing: that is mild, is scattered. Vital Signs: 13:52 BP 148 / 83; Pulse 68; Resp 17; Temp 98.4; Pulse Ox 100% ; Weight 117.93 kg; Height 5 7 ft. 1 in. (154.94 cm); Pain 5/10; 16:35 BP 167 / 71; Pulse 77; Resp 19 S; Pulse Ox 100% on R/A; ca1 17:30 BP 143 / 97; Pulse 94; Resp 16 S; Pulse Ox 99% on R/A; ca1 18:30 BP 133 / 67; Pulse 82; Resp 17 S; Pulse Ox 100% on R/A; ca1 13:52 Body Mass Index 49.13 (117.93 kg, 154.94 cm) 7 MDM: 16:54 Patient medically screened. [facility] 18:43 Data reviewed: vital signs, nurses notes. Counseling: I had a detailed discussion with joaquin the patient and/or guardian regarding: the historical points, exam findings, and any diagnostic results supporting the discharge/admit diagnosis, radiology results, the need for outpatient follow up, to return to the emergency department if symptoms worsen or persist or if there are any questions or concerns that arise at home. 08/01 16:50 Order name: Urine Dipstick--Ancillary (enter results); Complete Time: 17:15 bd 08/01 16:50 Order name: Urine --Ancillary (enter results); Complete Time: 17:15 bd 08/01 16:54 Order name: COVID-19 [facility] 08/01 16:54 Order name: Chest Single View XRAY; Complete Time: 17:28 [facility] 08/01 16:51 Order name: EKG; Complete Time: 16:52 ca1 08/01 16:51 Order name: EKG - Nurse/Tech; Complete Time: 16:51 ca1 Administered Medications: 17:15 Drug: DuoNeb (3:1) (2.5 mg - 0.5 mg) 3 ml Route: Nebulizer; ca1 18:36 Follow up: Response: No adverse reaction; Marked relief of symptoms ca1 17:15 Drug: Decadron 10 mg Route: IM; Site: right gluteus; ca1 18:35 Follow up: Response: No adverse reaction ca1 Disposition: 08/02 07:53 Co-signature as Attending Physician, Daniel Patten MD I agree with the assessment and kdr plan of care. Disposition: 08/01/20 18:45 Discharged to Home. Impression: Acute bronchitis. - Condition is Stable. - Discharge Instructions: Acute Bronchitis, Adult. - Prescriptions for Prednisone 20 mg Oral Tablet - take 3 tablet by ORAL route once daily for 5 days; 15 tablet. Albuterol Sulfate 90 mcg/actuation - inhale 1-2 puff by INHALATION route every 4-6 hours; 1 Inhaler. - Work release form, Medication Reconciliation Form, Thank You Letter, Antibiotic Education, Prescription Opioid Use form. - Follow up: Private Physician; When: 2 - 3 days; Reason: Recheck today's complaints, Continuance of care, Re-evaluation by your physician. Signatures: Dispatcher [employer] EDDaniel Lopez MD MD kdr Mickail, Joel, PA PA jmm Leal, Jahala RN RN jl7 Lucretia Jean RN RN ca1 Corrections: (The following items were deleted from the chart) 08/01 18:55 18:45 08/01/2020 18:45 Discharged to Home. Impression: Acute bronchitis. Condition is ca1 Stable. Forms are Medication Reconciliation Form, Thank You Letter, Antibiotic Education, Prescription Opioid Use. Follow up: Private Physician; When: 2 - 3 days; Reason: Recheck today's complaints, Continuance of care, Re-evaluation by your physician. joaquin
[2020-08-02 13:48] VITALS: TEMP 98.4
[2020-08-02 13:52] VITALS: BP 133/67; O2SAT 100
--- NOTE | 2020-08-03 14:04 | EKG ---
Test Date: 2020-08-01 Test Time: 14:01:32 Case Mgr: FIDELINA MEASUREMENT RESULTS: Intervals: Rate: 86 MO: 118 QRSD: 92 QT: 372 QTc: 445 [place]: P: 21 MO: 118 QRS: 28 T: 33 INTERPRETIVE STATEMENTS: Normal sinus rhythm Normal ECG No previous ECG available for comparison Electronically Signed On 08-03-20 13:59:02 [employer]RECTIONS CADET by Noah Suárez
== END 2020-08-01 18:55 | disposition home or self-care (01) ==
LOC: ER 13:32
DX: J20.9 Acute bronchitis, unspecified (principal); Z20.828 Contact with and (suspected) exposure to other viral communicable diseases; F17.210 Nicotine dependence, cigarettes, uncomplicated; Z88.1 Allergy status to other antibiotic agents
CPT/HCPCS: 71045; 81003; 81025; 93005; 96372; 99285; J1100; U0002

== ENCOUNTER 2021-06-11 14:12 | Emergency (ER) | payer SELFPAY ==
[2021-06-11 16:06] LABS: Urine Blood Negative (Negative); Urine Glucose Negative (Negative); Urine Protein Negative (Negative)
[2021-06-11 16:27] LABS: Absolute Lymphocytes (CBC) 3.4 K/uL (0.7-4.9); Basophils % 0.7 % (0-1.3); Hematocrit 39.3 % (36.0-45.0); Lymphocytes % 26.7 % (15.3-44.8); RBC Red Blood Cell Count 5.38 M/uL (3.86-4.86)
[2021-06-11] MEDS ORDERED: NA CHLORIDE 0.9% 1,000 ML ONE (16:35)
[2021-06-11 16:39] LABS: ALT/SGPT 38 U/L (12-78); AST/SGOT 28 U/L (15-37); Albumin 3.2 g/dL (3.4-5.0); Alkaline Phosphatase 102 U/L (45-117); BUN Blood Urea Nitrogen 7 mg/dL (7-18); Bicarbonate 25 mmol/L (21-32); Bilirubin Direct < 0.1 mg/dL (0-0.2); Bilirubin Total 0.3 mg/dL (0.2-1.0); Glucose Level 86 mg/dL (74-106); Lipase 56 U/L (73-393); Potassium 3.8 mmol/L (3.5-5.1); Protein, Total 7.5 g/dL (6.4-8.2); Sodium Level 140 mmol/L (136-145)
--- NOTE | 2021-06-11 17:18 | RAD REPORT ---
EXAM DESCRIPTION: CTAbdomen Pelvis W Contrast - 06/11/2021 5:11 pm CLINICAL HISTORY: Abdominal pain. abd pain COMPARISON: No comparisons TECHNIQUE: Biphasic CT imaging of the abdomen and pelvis was performed with 100 ml non-ionic IV cont rast. All CT scans are performed using dose optimization technique as appropriate and may include automated exposure control or mA/KV adjustment according to patient size. FINDINGS: The lung bases are clear. The liver demonstrates diffuse fatty infiltration. Spleen, pancreas, adrenal glands and kidneys are w ithin normal limits. No bowel obstruction, free air, free fluid or abscess. The appendix is normal. No evidence of signi ficant lymphadenopathy. No suspicious bony findings. IMPRESSION: No acute intra-abdominal or pelvic finding. Diffuse fatty liver is noted.
--- NOTE | 2021-06-11 17:20 | ER ---
Nurse's Notes [facility] Name: Eli Cisneros Age: 30 yrs Sex: Female : 1990 Arrival Date: 06/11/2021 Time: 14:15 Bed 18 Private MD: Diagnosis: Abdominal pain, Generalized Presentation: 06/11 14:27 Coronavirus screen: At this time, the client does not indicate any symptoms associated tw2 with coronavirus-19. Ebola Screen: Patient denies travel to an Ebola-affected area in the 21 days before illness onset. 14:27 Method Of Arrival: Ambulatory tw2 14:27 Initial Sepsis Screen: Does the patient meet any 2 criteria? No. Patient's initial tw2 sepsis screen is negative. Does the patient have a suspected source of infection? No. Patient's initial sepsis screen is negative. Risk Assessment: Do you want to hurt yourself or someone else? Patient reports no desire to harm self or others. Onset of symptoms was June 11, 2021. 14:27 Acuity: AMBER 3 tw2 Triage Assessment: 14:27 General: Appears in no apparent distress. obese, Behavior is calm, cooperative, tw2 appropriate for age. Pain: Complains of pain in umbilical area. GI: Reports lower abdominal pain, bloody stool, nausea. 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 - Social history:: Smoking status: Patient reports the use of cigarette tobacco products, smokes one-half pack cigarettes per day. Screenin:32 Abuse screen: Denies threats or abuse. Nutritional screening: No deficits noted. tw2 Tuberculosis screening: No symptoms or risk factors identified. Fall Risk None identified. Assessment: 14:40 General: Appears in no apparent distress. comfortable, obese, well developed, Behavior sl2 is calm, cooperative, Reports Reports rectal bleeding with bowel movement, nausea and intermittent abdominal pain X 3 months - worsening in severity over the last 3 weeks. 14:40 Pain: Denies pain. Neuro: No deficits noted. Cardiovascular: No deficits noted. sl2 Respiratory: No deficits noted. GI: Abdomen is round obese, Last BM was June 11, 2021. Bowel sounds present X 4 quads. Abd is soft and non tender X 4 quads. Reports Intermittent abdominal pain, nausea and rectal bleeding with bowel movement X 3 months - worsening in severity over the last 3 weeks. : No deficits noted. EENT: No deficits noted. Derm: No deficits noted. Musculoskeletal: No deficits noted. Vital Signs: 14:27 BP 160 / 93; Pulse 86; Resp 18; Temp 97.4(TE); Pulse Ox 99% on R/A; Weight 120.2 kg tw2 (R); Height 5 ft. 1 in. (154.94 cm); Pain 6/10; 15:30 BP 148 / 88; Pulse 76; Resp 18; Temp 97.6(O); Pulse Ox 99% on R/A; sl2 16:24 BP 140 / 85; Pulse 70; Resp 16; Temp 97.6(O); Pulse Ox 99% on R/A; sl2 17:32 BP 140 / 80; Pulse 69; Resp 16; Temp 98.2(O); Pulse Ox 98% on R/A; vg1 14:27 Body Mass Index 50.07 (120.20 kg, 154.94 cm) tw2 ED Course: 14:15 Patient arrived in ED. mr 14:27 Arm band placed on. tw2 14:28 Triage completed. tw2 14:32 Bed in low position. Call light in reach. tw2 14:40 No provider procedures requiring assistance completed. sl2 14:41 Rafia Parks [facility]-C [facility]. kb 14:41 Jarred King MD is Attending Physician. kb 15:10 Inserted saline lock: 20 gauge in left antecubital area, using aseptic technique. sl2 15:44 Dorene Abbott, ILENE is Primary Nurse. sl2 17:34 IV discontinued, intact, bleeding controlled, No redness/swelling at site. Pressure vg1 dressing applied. Administered Medications: 16:01 Drug: NS 0.9% 1000 ml Route: IV; Rate: 1000 ml; Site: left antecubital; sl2 16:32 Follow up: Response: No adverse reaction sl2 17:33 Follow up: IV Status: Completed infusion; IV Intake: 1000ml vg1 Intake: 17:33 IV: 1000ml; Total: 1000ml. vg1 Outcome: 17:20 Discharge ordered by . jolynn 17:33 Discharged to home ambulatory. vg1 17:33 Condition: stable 17:33 Discharge instructions given to patient, Instructed on discharge instructions, follow up and referral plans. medication usage, Demonstrated understanding of instructions, follow-up care, medications, Prescriptions given X 2. 17:34 Patient left the ED. vg1 Signatures: Rafia Parks, LARAC RIB TRIM SEPARATOR-Thao Sanchez mr Anupama Olivares, RN RN tw2 Kimmie Solorio, RN RN vg1 Dorene Abbott, ILENE RN sl2 Corrections: (The following items were deleted from the chart) 16:25 14:00 BP 140 / 85; Pulse 70bpm; Resp 16bpm; Pulse Ox 99% RA; Temp 97.6F Oral; sl2 sl2 16:26 14:24 Chief complaint: Patient states: couple of days ago i went to the bathroom and sl2 went #2 and it was full of bright red blood. i have been been having abdominal pain for a couple of weeks. i am nauseous all the time. tw2
--- NOTE | 2021-06-11 17:20 | EDPHYS ---
Physician Documentation [facility] Name: Eli Cisneros Age: 30 yrs Sex: Female : 1990 Arrival Date: 06/11/2021 Time: 14:15 Bed 18 Private MD: ED Physician Jarred King HPI: 06/11 16:28 This 30 yrs old Female presents to ER via Ambulatory with complaints of kb Bloody Stools. 16:28 The patient presents with abdominal pain that is diffuse. Onset: The symptoms/episode kb began/occurred "weeks ago". The symptoms do not radiate. Associated signs and symptoms: Pertinent positives: nausea. The symptoms are described as constant. Modifying factors: The symptoms are alleviated by nothing, the symptoms are aggravated by nothing. Severity of pain: At its worst the pain was moderate in the emergency department the pain is unchanged. The patient has not experienced similar symptoms in the past. The patient has not recently seen a physician. Pt reports nausea and abd pain for weeks. States she had a BM with bright red blood 2 days ago. Since then she has had a normal BM (texture and color). . 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 - Social history:: Smoking status: Patient reports the use of cigarette tobacco products, smokes one-half pack cigarettes per day. ROS: 16:28 Constitutional: Negative for fever, chills, and weight loss. kb 16:28 Abdomen/GI: Positive for abdominal pain, nausea. 16:28 All other systems are negative. Exam: 16:28 Constitutional: This is a well developed, well nourished patient who is awake, alert, kb and in no acute distress. Head/Face: Normocephalic, atraumatic. ENT: Moist Mucous membranes Cardiovascular: Regular rate and rhythm with a normal S1 and S2. No gallops, murmurs, or rubs. No pulse deficits. Respiratory: Respirations even and unlabored. No increased work of breathing, no retractions or nasal flaring. Abdomen/GI: Soft, non-tender. No distention Skin: Warm, dry with normal turgor. Normal color. MS/ Extremity: Pulses equal, no cyanosis. Neurovascular intact. Full, normal range of motion. Neuro: Awake and alert, GCS 15, oriented to person, place, time, and situation. Moves all extremities. Normal gait. Psych: Awake, alert, with orientation to person, place and time. Behavior, mood, and affect are within normal limits. Vital Signs: 14:27 BP 160 / 93; Pulse 86; Resp 18; Temp 97.4(TE); Pulse Ox 99% on R/A; Weight 120.2 kg tw2 (R); Height 5 ft. 1 in. (154.94 cm); Pain 6/10; 15:30 BP 148 / 88; Pulse 76; Resp 18; Temp 97.6(O); Pulse Ox 99% on R/A; sl2 16:24 BP 140 / 85; Pulse 70; Resp 16; Temp 97.6(O); Pulse Ox 99% on R/A; sl2 17:32 BP 140 / 80; Pulse 69; Resp 16; Temp 98.2(O); Pulse Ox 98% on R/A; vg1 14:27 Body Mass Index 50.07 (120.20 kg, 154.94 cm) tw2 MDM: 14:41 Patient medically screened. kb 16:27 Data reviewed: vital signs, nurses notes. Data interpreted: Pulse oximetry: on room air kb is 99 %. Interpretation: normal. 17:17 Counseling: I had a detailed discussion with the patient and/or guardian regarding: the kb historical points, exam findings, and any diagnostic results supporting the discharge/admit diagnosis, lab results, radiology results, the need for outpatient follow up, a family practitioner, to return to the emergency department if symptoms worsen or persist or if there are any questions or concerns that arise at home. 06/11 16:06 Order name: Urine Dipstick-Ancillary; Complete Time: 16:08 EDMS 06/11 16:28 Order name: CBC with Automated Diff; Complete Time: 16:30 EDMS 06/11 14:41 Order name: IV Saline Lock; Complete Time: 16:12 kb 06/11 14:41 Order name: CT Abd/Pelvis - IV Contrast Only kb 06/11 16:33 Order name: Urine --Ancillary (enter results); Complete Time: 09:09 mb4 06/11 16:40 Order name: Basic Metabolic Panel; Complete Time: 16:42 EDMS 06/11 16:40 Order name: Liver (Hepatic) Function; Complete Time: 16:42 EDMS 06/11 16:40 Order name: Lipase; Complete Time: 16:42 EDMS 06/11 17:18 Order name: CT; Complete Time: 17:19 EDMS 06/11 14:41 Order name: Labs collected and sent; Complete Time: 16:12 kb 06/11 14:41 Order name: Urine Dipstick-Ancillary (obtain specimen); Complete Time: 16:12 kb 06/11 14:41 Order name: Urine Test (obtain specimen); Complete Time: 16:12 kb Administered Medications: 16:01 Drug: NS 0.9% 1000 ml Route: IV; Rate: 1000 ml; Site: left antecubital; sl2 16:32 Follow up: Response: No adverse reaction sl2 17:33 Follow up: IV Status: Completed infusion; IV Intake: 1000ml vg1 Disposition: 06/12 09:09 Co-signature as Attending Physician, Jarred King MD I agree with the assessment and rn plan of care. Attestation: The patient's history, exam findings, diagnostics, and a summary of any interventions or procedures was reviewed in detail with Rafia LEONARD. Disposition Summary: 06/11/21 17:20 Discharge Ordered Location: Home kb Condition: Stable kb Diagnosis - Abdominal pain, Generalized kb Followup: kb - With: Emergency Department - When: As needed - Reason: Worsening of condition Followup: kb - With: Private Physician - When: 2 - 3 days - Reason: Recheck today's complaints, Continuance of care, Re-evaluation by your physician Discharge Instructions: - Discharge Summary Sheet kb - Abdominal Pain, Adult, [id number] kb Forms: - Medication Reconciliation Form kb - Thank You Letter kb - Antibiotic Education kb - Prescription Opioid Use kb Prescriptions: - Zofran 4 mg Oral Tablet - take 1 tablet by ORAL route every 6 hours As needed; 20 tablet; Refills: 0, kb Product Selection Permitted - dicyclomine 20 mg Oral Tablet - take 1 tablet by ORAL route 4 times per day As needed; 20 tablet; Refills: 0, kb Product Selection Permitted Signatures: Dispatcher [employer] Rafia Marx, LARAC DIRECTOR OF NEUROLOGY-Jarred Mcmillan MD MD rn Wise, Tara, RN RN tw2 Dorene Abbott RN RN sl2 Kimmie Solorio RN vg1
[2021-06-11 17:45] VITALS: BP 140/80; TEMP 98.2; O2SAT 98
== END 2021-06-11 17:34 | disposition home or self-care (01) ==
LOC: ER 14:12
DX: R10.84 Generalized abdominal pain (principal); K21.9 Gastro-esophageal reflux disease without esophagitis; E78.00 Pure hypercholesterolemia, unspecified; F17.210 Nicotine dependence, cigarettes, uncomplicated; Z88.8 Allergy status to other drugs, medicaments and biological substances
CPT/HCPCS: 36415; 74177; 80048; 80076; 81003; 81025; 83690; 85025; 96360; 96361; 99283; J7030; Q9967

== ENCOUNTER 2021-08-11 18:31 | Emergency (ER) | payer SELFPAY ==
[2021-08-11 20:56] LABS: SARS-COV-2 RT PCR NEGATIVE (NEGATIVE)
[2021-08-11 23:10] LABS: Urine Blood 2+ (Negative); Urine Glucose Negative (Negative); Urine Protein Negative (Negative)
--- NOTE | 2021-08-11 23:29 | EDPHYS ---
Physician Documentation [facility] Name: Eli Cisneros Age: 30 yrs Sex: Female : 1990 Arrival Date: 08/11/2021 Time: 18:34 Bed 14 Private MD: ED Physician Akin Wyman HPI: 08/11 20:39 This 30 yrs old Female presents to ER via Unassigned with complaints of Chills, Fever. kb 20:39 The patient or guardian reports cough, that is intermittent, described as mild, flu kb symptoms, low-grade fever, myalgias. Onset: The symptoms/episode began/occurred 12 day(s) ago. Severity of symptoms: At their worst the symptoms were moderate, in the emergency department the symptoms are unchanged. Modifying factors: The symptoms are alleviated by nothing, the symptoms are aggravated by nothing. Associated signs and symptoms: Pertinent positives: fever, rhinorrhea, Pertinent negatives: chest pain, diarrhea, ear ache, nausea, sore throat, vomiting. The patient has not experienced similar symptoms in the past. The patient has not recently seen a physician. Pt reports cough, congestion, fever, chills, bodyaches and malaise for 12 days. Was seen at [place] and diagnosed with bronchitis without testing. Was put on antibiotics and steroids, but has had no improvement. 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 - Social history:: Smoking status: Patient reports the use of cigarette tobacco products, smokes one pack cigarettes per day. ROS: 20:39 Cardiovascular: Negative for chest pain, palpitations, and edema. kb 20:39 Constitutional: Positive for body aches, chills, fatigue, fever, malaise. 20:39 ENT: Positive for sinus congestion. 20:39 Respiratory: Positive for cough, Negative for dyspnea on exertion, hemoptysis, orthopnea, pleurisy, shortness of breath, sputum production, wheezing. 20:39 All other systems are negative. Exam: 20:39 Constitutional: This is a well developed, well nourished patient who is awake, alert, kb and in no acute distress. Head/Face: Normocephalic, atraumatic. ENT: Moist Mucous membranes Cardiovascular: Regular rate and rhythm with a normal S1 and S2. No gallops, murmurs, or rubs. No pulse deficits. Respiratory: Respirations even and unlabored. No increased work of breathing. Talking in full sentences Skin: Warm, dry with normal turgor. Normal color. MS/ Extremity: Pulses equal, no cyanosis. Neurovascular intact. Full, normal range of motion. Neuro: Awake and alert, GCS 15, oriented to person, place, time, and situation. Moves all extremities. Normal gait. Psych: Awake, alert, with orientation to person, place and time. Behavior, mood, and affect are within normal limits. Vital Signs: 21:34 BP 139 / 65; Pulse 102; Resp 20; Temp 99; Pulse Ox 100% ; Weight 117.93 kg; Height 5 jh5 ft. 1 in. (154.94 cm); 23:14 BP 124 / 56; Pulse 96; Resp 16; Temp 101.1; Pulse Ox 98% 0 lpm ; sv1 21:34 Body Mass Index 49.13 (117.93 kg, 154.94 cm) 5 MDM: 20:01 Patient medically screened. kb 20:38 Data reviewed: vital signs, nurses notes. Data interpreted: Pulse oximetry: on room air kb is 100 %. Interpretation: normal. 08/11 19:48 Order name: COVID-19/FLU A+B (Document "Date of Onset" if Symptomatic); Complete Time: kb 22:38 08/11 22:38 Interpretation: Reviewed. 08/11 22:55 Order name: Urine Microscopic Only 08/11 22:56 Order name: Urine Microscopic Only [facility] 08/11 23:09 Order name: Urine Dipstick-Ancillary; Complete Time: 23:17 [facility] 08/11 23:12 Order name: Urine --Ancillary (enter results) 2 08/11 23:50 Order name: Urine Culture [facility] 08/11 21:13 Order name: Chest Single View XRAY 08/11 22:55 Order name: Urine Test (obtain specimen); Complete Time: 23:12 cp 08/11 22:55 Order name: Urine Dipstick-Ancillary (obtain specimen); Complete Time: 23:12 cp Administered Medications: 23:10 Drug: Tylenol 1000 mg Route: PO; sv1 23:45 Follow up: Response: No adverse reaction sv1 23:10 Drug: Doxycycline 200 mg Route: PO; sv1 23:45 Follow up: Response: No adverse reaction sv1 Disposition: 08/12 00:47 Co-signature as Attending Physician, Akin Wyman MD. melody Disposition Summary: 08/11/21 23:28 Discharge Ordered Location: Home cp Problem: new cp Symptoms: have improved cp Condition: Stable cp Diagnosis - Pneumonia, unspecified organism cp Followup: cp - With: Private Physician - When: 2 - 3 days - Reason: Worsening of condition Discharge Instructions: - Discharge Summary Sheet cp - Community-Acquired Pneumonia, Adult cp Forms: - Medication Reconciliation Form cp - Thank You Letter cp - Antibiotic Education cp - Prescription Opioid Use cp Prescriptions: - Doxycycline Hyclate 100 mg Oral Tablet - take 1 tablet by ORAL route every 12 hours; 20 tablet; Refills: 0, Product cp Selection Permitted - albuterol sulfate 90 mcg/actuation Inhalation HFA aerosol inhaler - inhale 2 puff by INHALATION route every 6 hours; 1 Inhaler; Refills: 0, Product cp Selection Permitted - Ibuprofen 800 mg Oral Tablet - take 1 tablet by ORAL route every 8 hours As needed take with food; 30 tablet; cp Refills: 0, Product Selection Permitted Signatures: Dispatcher [employer] EDRafia Bear, COMPUTER TECHNOLOGY INSTRUCTOR-C COMPUTER TECHNOLOGY INSTRUCTOR-Akin Mancuso MD MD pkl Page, Corey, PA PA Rena Hinojosa, RN RN jh5 Ramón Howell RN RN sv1
--- NOTE | 2021-08-11 23:29 | ER ---
Nurse's Notes [facility] Name: Eli Cisneros Age: 30 yrs Sex: Female : 1990 Arrival Date: 08/11/2021 Time: 18:34 Bed 14 Private MD: Diagnosis: Pneumonia, unspecified organism Presentation: 08/11 21:34 Chief complaint: Patient states: cough, SWANN, left ear pain x12 days. Coronavirus screen: [facility] Vaccine status: Patient reports being unvaccinated. Client denies travel out of the [place] in the last 14 days. Client presents with at least one sign or symptom that may indicate coronavirus-19. Ebola Screen: Patient negative for fever greater than or equal to 101.5 degrees Fahrenheit, and additional compatible Ebola Virus Disease symptoms Patient denies exposure to infectious person. Patient denies travel to an Ebola-affected area in the 21 days before illness onset. Initial Sepsis Screen: Does the patient meet any 2 criteria? HR > 90 bpm. Does the patient have a suspected source of infection? Yes:. Risk Assessment: Do you want to hurt yourself or someone else? Patient reports no desire to harm self or others. Onset of symptoms was July 30, 2021. 21:34 Method Of Arrival: Ambulatory [facility] 21:34 Acuity: AMBER 3 5 Triage Assessment: 21:36 General: Appears in no apparent distress. obese, Behavior is calm, cooperative, jh5 appropriate for age. Pain: Complains of pain in generalized. 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 - Social history:: Smoking status: Patient reports the use of cigarette tobacco products, smokes one pack cigarettes per day. Screenin:37 Abuse screen: Denies threats or abuse. Denies injuries from another. Nutritional [facility] screening: No deficits noted. Tuberculosis screening: No symptoms or risk factors identified. Fall Risk None identified. Assessment: 23:16 Reassessment: Tempelevated to 101.1. Patient feels fatigued. . sv1 23:43 Reassessment: Cleared for discharge to home by the provider. . sv1 Vital Signs: 21:34 BP 139 / 65; Pulse 102; Resp 20; Temp 99; Pulse Ox 100% ; Weight 117.93 kg; Height 5 [facility] ft. 1 in. (154.94 cm); 23:14 BP 124 / 56; Pulse 96; Resp 16; Temp 101.1; Pulse Ox 98% 0 lpm ; sv1 21:34 Body Mass Index 49.13 (117.93 kg, 154.94 cm) 5 ED Course: 18:34 Patient arrived in ED. ds1 19:34 Rafai Parks FNP-C is [facility]. kb 19:34 Nathen Olivares MD is Attending Physician. kb 21:36 Triage completed. jh5 22:05 Chest Single View XRAY In Process Unspecified. EDMS 22:39 Nathen Wilkes PA is PHCP. cp 22:39 Akin Wyman MD is Attending Physician. cp 23:11 Urine collected: clean catch specimen, clear. lt3 23:12 Urine Microscopic Only Sent. lt3 23:14 Ramón Howell, ILENE is Primary Nurse. sv1 23:14 Arm band placed on right wrist. sv1 23:15 Patient has correct armband on for positive identification. Side rails up X 1. sv1 23:42 No provider procedures requiring assistance completed. sv1 Administered Medications: 23:10 Drug: Tylenol 1000 mg Route: PO; sv1 23:45 Follow up: Response: No adverse reaction sv1 23:10 Drug: Doxycycline 200 mg Route: PO; sv1 23:45 Follow up: Response: No adverse reaction sv1 Outcome: 23:28 Discharge ordered by MD. cp 23:42 Discharged to home ambulatory. sv1 23:42 Condition: good 23:42 Discharge instructions given to patient. 08/12 00:00 Patient left the ED. bb Signatures: Dispatcher [employer] EDWV Rafia Parks FNP-C FNP-Raysa Alvarez ds1 Vernell Moore RN ILENE bb Ntahen Wilkes PA PA cp Rees, Jessica, RN RN [facility] Rebeca Rush 3 Ramón Howell, ILENE RN sv1
[2021-08-11] MEDS ORDERED: ACETAMINOPHEN 500 MG TAB ONE (23:36)
[2021-08-11] MEDS ORDERED: DOXYCYCLINE 100 MG CAP PO ONE (23:37)
[2021-08-11 23:49] LABS: Urine Amorphous Sediment 1+ /HPF (NONE SEEN); Urine Bacteria 20-50 /HPF (<20); Urine Mucus MOD /HPF (NONE SEEN); Urine RBC <5 /HPF (NONE SEEN)
[2021-08-12 00:38] VITALS: BP 124/56; TEMP 101.1; O2SAT 98
--- NOTE | 2021-08-12 08:27 | RAD REPORT ---
EXAM DESCRIPTION: RAD - Chest Single View - 08/11/2021 10:05 pm CLINICAL HISTORY: COUGH Chest pain. COMPARISON: Chest Single View dated 08/01/2020; Chest Single View dated 11/17/2019 FINDINGS: Portable technique limits examination quality. [id number] bilateral interstitial lung opacities are present likely representing viral infectio n. The heart is normal in size. No displaced fractures.
== END 2021-08-12 | disposition home or self-care (01) ==
LOC: ER 18:31
DX: J18.9 Pneumonia, unspecified organism (principal); F17.210 Nicotine dependence, cigarettes, uncomplicated; Z20.822 Contact with and (suspected) exposure to COVID-19
CPT/HCPCS: 0240U; 71045; 81003; 81015; 81025; 87086; 87088; 99283

== ENCOUNTER 2022-02-25 15:34 | Emergency (ER) | payer SELFPAY ==
[2022-02-25 17:23] LABS: Urine Blood Negative (Negative); Urine Glucose Negative (Negative); Urine Protein 1+ (Negative); Urine Specific Gravity >=1.030 (1.005-1.030); Urine pH 5.5 (5.0-7.0)
[2022-02-25 17:31] LABS: Absolute Lymphocytes (CBC) 3.4 K/uL (0.7-4.9); Hematocrit 38.8 % (36.0-45.0); Lymphocytes % 22.8 % (15.3-44.8); MCV 73.3 fL (80-100); MPV 7.7 fL (7.6-11.3); RBC Red Blood Cell Count 5.29 M/uL (3.86-4.86)
[2022-02-25 17:43] LABS: Urine Bacteria <20 /HPF (<20); Urine Mucus 2+ /HPF (NONE SEEN); Urine RBC <5 /HPF (NONE SEEN)
[2022-02-25 17:46] LABS: Albumin 3.4 g/dL (3.4-5.0); Bilirubin Total 0.2 mg/dL (0.2-1.0); Potassium 3.8 mmol/L (3.5-5.1); Protein, Total 7.5 g/dL (6.4-8.2)
--- NOTE | 2022-02-25 18:40 | RAD REPORT ---
EXAM DESCRIPTION: CT - Abdomen Pelvis W Contrast - 02/25/2022 6:18 pm CLINICAL HISTORY: Suprapubic pain COMPARISON: Abdomen Pelvis W Contrast dated 06/11/2021 TECHNIQUE: Biphasic, helical CT imaging of the abdomen and pelvis was performed following 100 ml non -ionic IV contrast. No oral contrast was given. All CT scans are performed using dose optimization technique as appropriate and may include automated exposure control or mA/KV adjustment according to patient size. FINDINGS: No suspicious findings in the lung bases. The liver, spleen, and pancreas show no suspicious focal findings. Liver shows diffuse fatty infiltra tion. Gallbladder is mostly contracted. No acute gallbladder or biliary tree finding. Symmetric renal function is seen with no hydronephrosis or suspicious renal mass. No pyelonephritis o r acute parenchymal process. Bladder is mostly contracted. Uterus and ovaries show no suspicious find ings. An 18 millimeter exophytic right ovarian cyst is present. No adrenal abnormalities. No stomach or small bowel abnormality. The appendix is normal. From cecum through descending colon no acute findings seen. Proximal sigmoid colon shows 6 centimeter long segment of circumferential wall thickening and edema. Stranding is seen in the adjacent fat. Patient has mild diverticulosis. No free air, free fluid or pneumatosis. No hernia, mass or bulky lymphadenopathy. No suspicious bony findings. IMPRESSION: Acute diverticulitis in the proximal sigmoid colon. No abscess, free air or surgically e mergent complication. Nonacute findings detailed in the body of the report.
--- NOTE | 2022-02-25 19:11 | EDPHYS ---
Physician Documentation [facility] Name: Eli Cisenros Age: 31 yrs Sex: Female : 1990 Arrival Date: 02/25/2022 Time: 15:35 Bed 11 Private MD: ED Physician Nathen Olivares HPI: 02/25 17:00 This 31 yrs old Female presents to ER via Ambulatory with complaints of Abdominal Pain pm1 - lower. 17:00 The patient presents with abdominal pain suprapubic area. Onset: The symptoms/episode pm1 began/occurred 1 week(s) ago. The symptoms do not radiate. Associated signs and symptoms: Pertinent negatives: nausea, vomiting, and diarrhea, chest pain, dysuria, fever, shortness of breath. The symptoms are described as sharp. Modifying factors: The symptoms are alleviated by nothing, the symptoms are aggravated by nothing. Severity of pain: in the emergency department the pain is actually worse. The patient has not experienced similar symptoms in the past. The patient has not recently seen a physician. Historical: - Allergies: 16:32 Ceclor; iw - PMHx: 16:32 Gastroesophageal reflux disease; Hypercholesterolemia; iw - PSHx: 16:32 Adenoid excision; section; Tonsillectomy; iw ROS: 17:00 Constitutional: Negative for fever, chills, and weight loss, Cardiovascular: Negative pm1 for chest pain, palpitations, and edema, Respiratory: Negative for shortness of breath, cough, wheezing, and pleuritic chest pain. 17:00 Back: Negative for injury and pain, MS/Extremity: Negative for injury and deformity, Skin: Negative for injury, rash, and discoloration, Neuro: Negative for headache, weakness, numbness, tingling, and seizure. 17:00 Abdomen/GI: Positive for abdominal pain, of the suprapubic area, Negative for nausea, vomiting, and diarrhea, constipation. 17:00 All other systems are negative. Exam: 17:00 Constitutional: This is a well developed, well nourished patient who is awake, alert, pm1 and in no acute distress. Head/Face: Normocephalic, atraumatic. 17:00 Back: No spinal tenderness. No costovertebral tenderness. Full range of motion. Skin: Warm, dry with normal turgor. Normal color with no rashes, no lesions, and no evidence of cellulitis. MS/ Extremity: Pulses equal, no cyanosis. Neurovascular intact. Full, normal range of motion. 17:00 Eyes: Exam is negative for acute changes, Periorbital structures: appear normal, Pupils: no acute changes, Extraocular movements: no acute changes, Conjunctiva: no acute changes, no injection, Sclera: no acute changes, icterus, is not appreciated. 17:00 Cardiovascular: Exam negative for acute changes, Rate: normal, Rhythm: regular, Pulses: no pulse deficits are appreciated, Heart sounds: normal, normal S1and S2. 17:00 Respiratory: Exam negative for acute changes, respiratory distress, shortness of breath, Breath sounds: are clear throughout. 17:00 Abdomen/GI: Inspection: abdomen appears normal, Palpation: abdomen is soft and non-tender, in all quadrants. 17:00 Neuro: Exam negative for acute changes, Orientation: is normal, Mentation: is normal, Motor: is normal, moves all fours. Vital Signs: 16:30 BP 134 / 80; Pulse 80; Resp 16; Temp 98.1; Pulse Ox 99% ; iw 21:35 Pain 4/10; tw5 21:48 Pulse 18; Resp 66; Pulse Ox 100% on R/A; tw5 MDM: 17:00 Patient medically screened. pm1 19:09 Data reviewed: vital signs. Data interpreted: Pulse oximetry: on room air is 99 %. pm1 Interpretation: normal. 19:09 Counseling: I had a detailed discussion with the patient and/or guardian regarding: the pm1 historical points, exam findings, and any diagnostic results supporting the discharge/admit diagnosis, lab results, radiology results, the need for outpatient follow up, a family practitioner, a reception interviewer, to return to the emergency department if symptoms worsen or persist or if there are any questions or concerns that arise at home. 02/25 17:00 Order name: CBC with Diff; Complete Time: 17:38 pm1 02/25 17:00 Order name: CMP; Complete Time: 18:29 pm1 02/25 17:00 Order name: Lipase; Complete Time: 18:29 pm1 02/25 17:00 Order name: Urine Microscopic Only; Complete Time: 18:29 pm1 02/25 17:24 Order name: Urine Dipstick-Ancillary; Complete Time: 17:30 [facility] [place] 02/25 17:00 Order name: CT Abd/Pelvis - IV Contrast Only; Complete Time: 18:47 pm1 02/25 17:46 Order name: Urine Culture [facility] [place] 02/25 17:00 Order name: IV Saline Lock; Complete Time: 17:51 pm1 02/25 17:00 Order name: Labs collected and sent; Complete Time: 17:51 pm1 02/25 17:00 Order name: Urine Dipstick-Ancillary (obtain specimen); Complete Time: 17:24 pm1 02/25 17:00 Order name: Urine Test (obtain specimen); Complete Time: 17:24 pm1 Administered Medications: 19:52 CANCELLED (Physician Discretion): Flagyl (metroNIDAZOLE) 500 mg 100 ml IVPB at 200 pm1 ml/hr once over 30 mins 19:52 CANCELLED (Physician Discretion): Cipro (ciprofloxacin) 500 mg PO once pm1 20:22 Drug: Cipro (ciprofloxacin) 500 mg Route: PO; vc1 21:35 Follow up: Response: No adverse reaction tw5 20:22 Drug: Flagyl (metroNIDAZOLE) 500 mg Volume: 100 ml; Route: IVPB; Rate: 200 ml/hr; vc1 Infused Over: 30 mins; Site: right antecubital; 21:36 Follow up: Response: No adverse reaction; IV Status: Completed infusion; IV Intake: tw5 100ml 20:23 Drug: NS 0.9% 1000 ml Route: IV; Rate: 1 bolus; Site: right antecubital; vc1 21:36 Follow up: Response: No adverse reaction; IV Status: Completed infusion; IV Intake: tw5 1000ml 20:23 Drug: Zofran (Ondansetron) 4 mg Route: IVP; Site: right antecubital; vc1 21:36 Follow up: Response: No adverse reaction tw5 20:23 Drug: morphine 4 mg Route: IVP; Infused Over: 4 mins; Site: right antecubital; vc1 21:35 Follow up: Pain 4/10 Adult; Response: No adverse reaction; Pain is decreased; RASS: tw5 Alert and Calm (0) Disposition Summary: 02/25/22 19:10 Discharge Ordered Location: Home pm1 Problem: new pm1 Symptoms: have improved pm1 Condition: Stable pm1 Diagnosis - Diverticulitis of large intestine without perforation or abscess without bleeding pm1 Followup: pm1 - With: Emergency Department - When: As needed - Reason: Worsening of condition Followup: pm1 - With: Private Physician - When: 2 - 3 days - Reason: Recheck today's complaints, Continuance of care, Re-evaluation by your physician Discharge Instructions: - Discharge Summary Sheet pm1 - Clear Liquid Diet, Adult pm1 - High-Fiber Diet pm1 - Diverticulitis pm1 Forms: - Medication Reconciliation Form pm1 - Thank You Letter pm1 - Antibiotic Education pm1 - Prescription Opioid Use pm1 Prescriptions: - Flagyl 500 mg Oral Tablet - take 1 tablet by ORAL route every 6 hours for 10 days; 40 tablet; Refills: 0, pm1 Product Selection Permitted - Cipro 500 mg Oral Tablet - take 1 tablet by ORAL route every 12 hours for 10 days; 20 tablet; Refills: 0, pm1 Product Selection Permitted - Tylenol-Codeine #3 300 mg-30 mg Oral - take 2 tablet by ORAL route every 6 hours As needed; 20 tablet; Refills: 0, pm1 Product Selection Permitted Signatures: Dispatcher [employer] EDIsabel Akhtar RN RN iw Armin Roldan, [employer] pm1 Denae Madrid RN RN vc1 Jackie Burgos tw5 Corrections: (The following items were deleted from the chart) 19:52 19:04 Flagyl (metroNIDAZOLE) 500 mg 100 ml IVPB at 200 ml/hr once over 30 mins ordered. pm1 pm1 19:52 19:04 Cipro (ciprofloxacin) 500 mg PO once ordered. pm1 pm1
--- NOTE | 2022-02-25 19:11 | ER ---
Nurse's Notes [facility] Name: Eli Cisneros Age: 31 yrs Sex: Female : 1990 Arrival Date: 02/25/2022 Time: 15:35 Bed 11 Private MD: Diagnosis: Diverticulitis of large intestine without perforation or abscess without bleeding Presentation: 02/25 16:30 Chief complaint: Patient states: lower abd pain X 1 week, thought it was her period but iw it's still hurting after her period stopped , denies pain or burning with urination. Coronavirus screen: At this time, the client does not indicate any symptoms associated with coronavirus-19. Ebola Screen: Patient negative for fever greater than or equal to 101.5 degrees Fahrenheit, and additional compatible Ebola Virus Disease symptoms Patient denies exposure to infectious person. Patient denies travel to an Ebola-affected area in the 21 days before illness onset. No symptoms or risks identified at this time. Initial Sepsis Screen: Does the patient meet any 2 criteria? No. Patient's initial sepsis screen is negative. Does the patient have a suspected source of infection? No. Patient's initial sepsis screen is negative. Risk Assessment: Do you want to hurt yourself or someone else? Patient reports no desire to harm self or others. Onset of symptoms was February 13, 2022. 16:30 Method Of Arrival: Ambulatory iw 16:30 Acuity: AMBER 3 iw Triage Assessment: 21:37 General: Appears in no apparent distress. Behavior is calm, cooperative, appropriate tw5 for age. Historical: - Allergies: 16:32 Ceclor; iw - PMHx: 16:32 Gastroesophageal reflux disease; Hypercholesterolemia; iw - PSHx: 16:32 Adenoid excision; section; Tonsillectomy; iw Screenin:36 Abuse screen: Denies threats or abuse. Denies injuries from another. Nutritional tw5 screening: No deficits noted. Tuberculosis screening: No symptoms or risk factors identified. Fall Risk None identified. Assessment: 21:36 Reassessment: Patient states feeling better. Patient states symptoms have improved. tw5 Pain: Pain currently is 4 out of 10 on a pain scale. GI: Bowel sounds present X 4 quads. Abd is soft and non tender. Vital Signs: 16:30 BP 134 / 80; Pulse 80; Resp 16; Temp 98.1; Pulse Ox 99% ; iw 21:35 Pain 4/10; tw5 21:48 Pulse 18; Resp 66; Pulse Ox 100% on R/A; tw5 ED Course: 15:35 Patient arrived in ED. am2 16:25 Armin Roldan NP is PHCP. pm1 16:25 Nathen Olivares MD is Attending Physician. pm1 16:32 Triage completed. iw 16:53 Arm band placed on. iw 17:50 Inserted saline lock: 22 gauge in right forearm, using aseptic technique. Blood zm collected. 17:51 Urine Culture Sent. zm 18:20 CT Abd/Pelvis - IV Contrast Only In Process Unspecified. EDMS 20:04 Jackie Burgos is Primary Nurse. tw5 21:36 Patient has correct armband on for positive identification. Pulse ox on. tw5 21:36 No provider procedures requiring assistance completed. IV discontinued, intact, tw5 bleeding controlled, No redness/swelling at site. Pressure dressing applied. Administered Medications: 19:52 CANCELLED (Physician Discretion): Flagyl (metroNIDAZOLE) 500 mg 100 ml IVPB at 200 pm1 ml/hr once over 30 mins 19:52 CANCELLED (Physician Discretion): Cipro (ciprofloxacin) 500 mg PO once pm1 20:22 Drug: Cipro (ciprofloxacin) 500 mg Route: PO; vc1 21:35 Follow up: Response: No adverse reaction tw5 20:22 Drug: Flagyl (metroNIDAZOLE) 500 mg Volume: 100 ml; Route: IVPB; Rate: 200 ml/hr; vc1 Infused Over: 30 mins; Site: right antecubital; 21:36 Follow up: Response: No adverse reaction; IV Status: Completed infusion; IV Intake: tw5 100ml 20:23 Drug: NS 0.9% 1000 ml Route: IV; Rate: 1 bolus; Site: right antecubital; vc1 21:36 Follow up: Response: No adverse reaction; IV Status: Completed infusion; IV Intake: tw5 1000ml 20:23 Drug: Zofran (Ondansetron) 4 mg Route: IVP; Site: right antecubital; vc1 21:36 Follow up: Response: No adverse reaction tw5 20:23 Drug: morphine 4 mg Route: IVP; Infused Over: 4 mins; Site: right antecubital; vc1 21:35 Follow up: Pain 4/10 Adult; Response: No adverse reaction; Pain is decreased; RASS: tw5 Alert and Calm (0) Medication: 21:36 VIS not applicable for this client. tw5 Intake: 21:36 IV: 1000ml; Total: 1000ml. tw5 21:36 IV: 100ml; Total: 1100ml. tw5 Outcome: 19:10 Discharge ordered by MD. pm1 21:48 Discharged to home ambulatory. tw5 21:48 Condition: improved 21:48 Discharge instructions given to patient, Instructed on discharge instructions, follow up and referral plans. Demonstrated understanding of instructions, follow-up care, medications, Prescriptions given X 3. 21:48 Patient left the ED. tw5 Signatures: Dispatcher [employer] EDIsabel Akhtar RN RN Armin Roldan, [employer]ER PIGMENT AND [employer]ACQU[employer] MIXER pm1 Mis Workman Tiffany tw5 Denae Madrid RN RN vc1 Leslie Sotelo Corrections: (The following items were deleted from the chart) 16:32 16:30 Pulse 80bpm; Resp 16bpm; Pulse Ox 99%; Temp 98.1F; iw
[2022-02-25] MEDS ORDERED: CIPROFLOXACIN HCL 500 MG TAB ONE (20:16)
[2022-02-25] MEDS ORDERED: ONDANSETRON 4 MG/2 ML VIAL ONE (20:17)
[2022-02-25] MEDS ORDERED: NA CHLORIDE 0.9% 1,000 ML ONE (20:17)
[2022-02-25] MEDS ORDERED: MORPHINE 4 MG/ML SYR ONE (20:17)
[2022-02-25] MEDS ORDERED: METRONIDAZOLE 500mg IVPB 500 MG/100 ML BAG IV ONE (20:18)
[2022-02-25 22:02] VITALS: BP 134/80; TEMP 98.1
[2022-02-25 22:23] VITALS: O2SAT 100
== END 2022-02-25 21:48 | disposition home or self-care (01) ==
LOC: ER 15:34
DX: K57.32 Diverticulitis of large intestine without perforation or abscess without bleeding (principal); Z88.1 Allergy status to other antibiotic agents
CPT/HCPCS: 36415; 74177; 80053; 81003; 81015; 83690; 85025; 87086; 87088; J2405; J3490; J7030; Q9967

== ENCOUNTER 2022-09-01 00:51 | Emergency (ER) | payer SELFPAY ==
--- OUTSIDE RECORDS SUMMARY | 2022-09-01 00:54 | XMS REPORT | Continuity of Care Document ---
:1990 Author Organization [facility] t Address [address] [place] [address] Care Team Providers Name Role Phone PCP, PATIENT DOES NOT HAVE A Primary Care Physician Unavaila ble BRANDI FREED Attending Clinician Unavailable Brandi Freed MD Attending Clinician Nolvia Alfaro LVN Attending Clinician Dimitry Vega MD Attending Clinician Vanessa Sosa MD Attending Clinician BRANDI FREED Admitting Clinician Unavailable VANESSA SOSA Admitting Clinician Unavailable Vanessa Sosa MD Admitting Clinician Problems Condition Condition Condition Status Onset Resolution Last Treating Co mments Source Name Details Category Date Date Treatment Clinician Date Morbid Morbid Disease Active Univers obesity obesity - [place] of [place] mass index mass index 00 Me dical of 50 or of 50 or Branch higher higher Colonic Colonic Disease Active Univers diverticul diverticul -17 [place] of [place] abscess [place] Allergies, Adverse Reactions, Alerts Allergy Allergy Status Severity Reaction(s) Onset Inactive Treating Comm ents Source Name Type Date Date Clinician NO KNOWN Drug Active Univers ALLERGIE Class ity of S [facility] Social History Social Habit Start Date Stop Date Quantity Comments Source History of Cigarette Smoker Universi ty of tobacco use [facility] Exposure to 2022-02-27 2022-03-09 Not sure University of SARS-CoV-2 00:00:00 11:44:00 [facility] (event) [place] Tobacco use and 2022-03-01 2022-03-01 Smokeless tobacco Un iversity of exposure 00:00:00 00:00:00 non-user [facility] Sex Assigned At [birth year] SESAR Smith 00:00:00 00:00:00 [facility] Smoking Status Start Date Stop Date Source Smokes tobacco daily 2022-03-01 00:00:00 [facility] Ordered Filled Start Stop Current Ordering Indication Dosage Frequency Signature Comments Components Source Medication Medication Date Date Medication? Clinician (SIG) Name Name iopamidol 2021- No [id number] 74mL 74 mL, Univers (ISOVUE 03-12 Intravenou ity o f 370-500 mL) 20:15: 19:04 s, ONCE, 1 [place] injection 00 :00 dose, On Medica l 74 mL [place] 03/12/22 at 1515, Routine hydrOXYzine 2021- No 25mg 25 mg, Uni vers (ATARAX) 03-05 Oral, ity of tablet 25 15:49: 16:52 ONCE, 1 [place] mg 00 :00 dose, On Medical [place] 03/05/22 at 1100, Routine iodixanoL 2021- No [id number] 80mL 80 mL, Univers (VISIPAQUE 03-05 Intravenou it y of 270-150 mL) 15:00: 14:43 s, ONCE, 1 [place] injection 00 :00 dose, On Medica l 80 mL [place] 03/05/22 at 1000, Routine magnesium 2021- No 4g 4 g, IV Univ ers sulfate in 03-05 Piggyback, it y of water 4 15:00: 18:10 ONCE, 1 [place] gram/50 mL 00 :00 dose, On Medic al (8 %) IV [place] Piggyback 4 03/05/22 at g 1000, Routine fluticasone 2021-0 Yes [id number] 1{spray Use 1 Univers propionate 7-21 } Price in ity o f 50 00:00: each [place] mcg/actuati 00 nostril in Me dical on nasal the Branch spray morning. lanolin 0 Yes [id number] Apply to U nivers alcohol-mo- 03-05 area(s) as it y of w.pet-ceres 00:00: needed for [place] Crea cream 00 Dermatitis Med ical /Rash or Branch Itching. fluticasone 0 Yes [id number] 1{spray Use 1 Univers propionate 7-21 } Price in ity o f 50 00:00: each [place] mcg/actuati 00 nostril in Me dical on nasal the Branch spray morning. lanolin 0 Yes [id number] [facility] alcohol-mo- 03-05 area(s) as it y of w.pet-ceres 00:00: needed for [place] Crea cream 00 Dermatitis Med ical /Rash or Branch Itching. fluticasone 0 Yes [id number] 1{spray Use 1 Univers propionate 7-21 } Price in ity o f 50 00:00: each [place] mcg/actuati 00 nostril in Me dical on nasal the Branch spray morning. lanolin 0 Yes [id number] Apply to U [facility] alcohol-mo- 03-05 area(s) as it y of w.pet-ceres 00:00: needed for [place] Crea cream 00 Dermatitis Med ical /Rash or Branch Itching. atorvastati 2021- No [id number] 20mg Take 1 Univers n 20 mg 03-05-20 tablet by ity of tablet 00:00: 04:59 mouth at [place] 00 :00 bedtime Medical for 60 Branch days. albuterol-i 2021- No [id number] 1{puff} Inhale 1 Univers pratropium 7-21 09-20 Puff every it y of 20-100 00:00: 04:59 6 (six) [place] mcg/actuati 00 :00 hours for Med ical on inhaler 60 days. Bran h atorvastati 2021- No [id number] 20mg Take 1 Univers n 20 mg 7-21 09-20 tablet by ity of tablet 00:00: 04:59 mouth at [place] 00 :00 bedtime Medical for 60 Branch days. albuterol-i 2021- No [id number] 1{puff} Inhale 1 Univers pratropium 7-21 09-20 Puff every it y of 20-100 00:00: 04:59 6 (six) [place] mcg/actuati 00 :00 hours for Med ical on inhaler 60 days. Bran h atorvastati 2021- No [id number] 20mg Take 1 Univers n 20 mg 7-21 09-20 tablet by ity of tablet 00:00: 04:59 mouth at [place] 00 :00 bedtime Medical for 60 Branch days. albuterol-i 2021- No [id number] 1{puff} Inhale 1 Univers pratropium 7-21 09-20 Puff every it y of 20-100 00:00: 04:59 6 (six) [place] mcg/actuati 00 :00 hours for Med ical on inhaler 60 days. [facility] cetirizine 2021- No [id number] 10mg Take 1 Univers 10 mg 7-21 08-21 tablet by ity of tablet 00:00: 04:59 mouth in [place] 00 :00 the [facility] morning Branch for 30 days. cetirizine 2021- No [id number] 10mg Take 1 Univers 10 mg 7-21 08-21 tablet by ity of tablet 00:00: 04:59 mouth in [place] 00 :00 the [facility] morning Branch for 30 days. cetirizine 2021- No [id number] 10mg Take 1 Univers 10 mg 7-21 08-21 tablet by ity of tablet 00:00: 04:59 mouth in [place] 00 :00 the [facility] morning Branch for 30 days. ciprofloxac 2021- No [id number] 500mg Take 1 Univers in HCl 500 7-21 07-23 tablet by ity of mg tablet 00:00: 04:59 mouth [place] 00 :00 every 12 Medical (twelve) Branch hours for 1 day. ciprofloxac 2021- No [id number] 500mg Take 1 Univers in HCl 500 03-05 tablet by ity of mg tablet 00:00: 04:59 mouth [place] 00 :00 every 12 Medical (twelve) Branch hours for 1 day. diphenhydrA 2021- No 25mg 25 mg, Uni vers MINE 03-04 Oral, ity of (BENADRYL) 14:45: 17:09 ONCE, 1 [place] tablet 25 00 :00 dose, On Medica l mg [facility] 03/04/22 at 0945, Routine diphenhydrA 0 Yes 25mg 25 mg, Univ ers MINE 03-04 Oral, ity of (BENADRYL) 02:04: Q4HPRN, [place] tablet 25 40 Starting Medica l mg on [facility] 03/03/22 at 2104, Until Discontinu ed, Routine, Itching, Mild Rash lanolin Yes Topical, Univer s alcohol-mo- 03-04 PRN, ity of w.pet-ceres 02:04: [place] (EUCERIN) 18 on [facility] cream 03/03/22 at Branch 210, Until Discontinu ed, Routine, Dermatitis /Rash, Itching iodixanoL 2021- No [id number] 80mL 80 mL, Univers (VISIPAQUE 03-03 Intravenou it y of 270-150 mL) 14:43: 14:43 s, ONCE, 1 [place] injection 00 :00 dose, On Medica l 80 mL [facility] 03/03/22 at 1000, Routine cetirizine Yes 10mg 10 mg, Unive rs (ZYRTEC) 03-02 Oral, ity of tablet 10 15:00: DAILY, [place] mg 00 First dose Medical on [facility] 03/02/22 at 1000, Until Discontinu ed, Routine magnesium 2021- No 4g 4 g, IV Univ ers sulfate in 03-02 Piggyback, it y of water 4 13:30: 14:51 ONCE, 1 [place] gram/50 mL 00 :00 dose, On Medic al (8 %) IV [facility] Piggyback 4 03/02/22 at g 0830, Routine atorvastati 0 Yes 20mg 20 mg, Univ ers n (LIPITOR) 7-18 Oral, QHS, it y of tablet 20 02:00: First dose [place] mg 00 on [facility] 03/01/22 at Branch 2100, Until Discontinu ed, Routine fluticasone Yes 1{spray 1 Price, [facility] propionate 18 } Nasal, ity of 50 00:45: DAILY, [place] mcg/actuati 00 First dose Me dical on nasal on [facility] spray 1 03/01/22 at Price 1945, Until Discontinu ed, Routine piperacilli Yes 3.375g 3.375 g, [facility] n-tazobacta 03-01 IV ity of m (ZOSYN) 21:00: [place], [place] 3.375 g in 00 Q6H ABX, Medic al NaCl 0.9% First dose Bran ch (NS) 50 mL (after MINI-BAG last modificati on) on [place] 03/01/22 at 1600, Until Discontinu ed, Administer over 4 Hours, 50 mL
Reas on for Anti-Infec tive: Documented Infection& lt;br>Docu mented Infection Site: Abdominal< br>Duratio n of Therapy: 7 days albuterol-i Yes 1{puff} 1 Puff, [facility] pratropium 03-01 Inhalation ity of (COMBIVENT 15:45: , Q6H, [place] RESPIMAT) 00 First dose Medi jason 20-100 on [facility] mcg/actuati 03/01/22 at on inhaler 1045, 1 Puff Until Discontinu ed, Routine
Is this order for a patient with suspected or confirmed COVID-19 infection? Yes pantoprazol Yes 40mg 40 mg, Univ ers e -17 Oral, ity of (PROTONIX) 14:00: DAILY, [place] EC tablet 00 First dose Medi jason 40 mg on [facility] 03/01/22 at 0900, Until Discontinu ed, Routine heparin Yes 5000U 5,000 Univers (porcine) - Units, ity of injection 13:00: [place]cut[place]o [place] 5,000 Units 00 us, Q12H, Med ical First dose Branch on [place] 03/01/22 at 0800, Until Discontinu ed, Routine piperacilli 2021- No 3.375g 3.375 g, Univers n-tazobacta 03-01 IV ity of m (ZOSYN) 09:00: 09:47 [place]back, [place] 3.375 g in 00 :00 ONCE, 1 Medica l NaCl 0.9% dose, On Branch (NS) 50 mL Sun MINI-BAG 03/01/22 at 0400, Administer over 30 Minutes, 50 mL
R tyrell for Anti-Infec tive: Documented Infection< br>Documen roberto Infection Site: Abdominal< br>Duratio n of Therapy: 7 days lactated 2021- No 1000mL at 150 Univ ers ringers IV 03-0118 mL/hr, ity of infusion 08:00: 12:24 1,000 mL, Best as 1,000 mL 00 :02 IV Medical Infusion, Branch CONTINUOUS , Starting on 03/01/22 at 0300, Until 03/02/22 at 0724, Routine HYDROcodone 2021-0 Yes 1{tbl} 1 tablet, Univers -acetaminop 03-01 Oral, ity of hen (NORCO 06:55: [facility]PRN[facility] 5-325 mg 07 Starting Medi jason tablet 1 on [place] tablet 03/01/22 at 0155, Until Discontinu ed, Routine, Pain (scale 7-10) acetaminoph 2021-0 Yes 1{tbl} 1 tablet, Univers en-codeine 7 Oral, ity of (TYLENOL 06:54: Q4HPRN, [place] #3) 300-30 49 Starting Medic al mg tablet 1 on [place] tablet 03/01/22 at 0154, Until Discontinu ed, Routine, Pain (scale 4-6) ondansetron 2021-0 Yes 4mg 4 mg, Slow Univers (ZOFRAN 7-17 IV Push, ity of (PF)) 06:54: Q6HPRN, [place] injection 4 29 Nausea and Me dical mg Vomiting Branch (N/V), Starting on 03/01/22 at 0154
Do ses of ondansetro n 16 mg and above need to be administer ed via IV piggyback. For Dose >=24mg ECG monitoring is advisable.
acetaminoph Yes 650mg 650 mg, Un ginette en 03-01 Oral, ity of (TYLENOL) 06:31: Q6R, [place] tablet 650 35 Starting Medic al mg on [place] 03/01/22 at 0131, Until Discontinu ed, Routine, Pain (scale 1-3) Vital Signs Vital Name Observation Time Observation Value Comments Source Systolic blood 2022-03-05 16:13:00 129 mm[Hg] [facility] Diastolic blood 2022-03-05 16:13:00 75 mm[Hg] [facility] Heart rate 2022-03-05 16:13:00 80 /min [facility] Body temperature 2022-03-05 16:13:00 36.44 Georgina [facility] Respiratory rate 2022-03-05 16:13:00 16 /min [facility] Oxygen saturation in 2022-03-05 16:13:00 97 /min [facility] Arterial blood by [facility] Pulse oximetry [place] Body weight 2022-03-04 06:45:00 121.972 kg [facility] BMI 2022-03-04 06:45:00 50.81 kg/m2 [facility] Body height 2022-03-01 06:19:00 154.9 cm [facility] Procedures Procedure Date / Time Performing Clinician Source Performed CT ABDOMEN PELVIS W 2022-03-05 14:46:09 Graham [facility] CONTRAST [facility] MAGNESIUM 2022-03-05 11:05:00 Graham [facility] HEPATIC FUNCTION PANEL 2022-03-05 11:05:00 Pranav Stringer [facility] ([id number]) (ALB,T.PRO,[facility] T,BU/BC,ALT,AST,ALK PHOS) BASIC METABOLIC PANEL 2022-03-05 11:05:00 Graham [facility] (NA, K, CL, CO2, Medical [place] GLUCOSE, BUN, CREATININE, CA) CBC WITH DIFF 2022-03-05 11:05:00 Graham [facility] MAGNESIUM 2022-03-04 10:17:00 Graham [facility] COMP. METABOLIC PANEL 2022-03-04 10:17:00 Graham [facility] ([id number]) Medical [place] CBC WITH DIFF 2022-03-04 10:17:00 Graham [facility] CT ABDOMEN PELVIS W 2022-03-03 14:47:55 Karl Gallegos [facility] CONTRAST [facility] MAGNESIUM 2022-03-03 06:15:00 [facility] COMP. METABOLIC PANEL 2022-03-03 06:15:00 [id number] CBC WITH DIFF 2022-03-03 06:15:00 [facility] PHOSPHORUS 2022-03-02 10:15:00 El [facility] MAGNESIUM 2022-03-02 10:15:00 El [facility] BASIC METABOLIC PANEL 2022-03-02 10:15:00 Karl Gallegos [facility] (NA, K, CL, CO2, Medical Branch GLUCOSE, BUN, CREATININE, CA) CT ABDOMEN PELVIS W 2022-03-01 12:34:10 Karl Gallegos [facility] BLOOD CULTURE SCREEN 2022-03-01 12:22:00 El [facility] C-REACTIVE PROTEIN 2022-03-01 07:35:00 Brielle Aguero [facility] THYROID STIMULATING 2022-03-01 07:35:00 Brielle Aguero [facility] HORMONE [facility] Branch HEPATIC FUNCTION PANEL 2022-03-01 07:35:00 [facility] ([id number] (ALB,T.PRO,BILI Medical Branch T,BU/BC,ALT,AST,ALK PHOS) BASIC METABOLIC PANEL 2022-03-01 07:35:00 [facility] (NA, K, CL, CO2, Medical Branch GLUCOSE, BUN, CREATININE, CA) LIPID PANEL 2022-03-01 07:35:00 [facility] ([id number])(TOTAL Medical Branch CHOLESTEROL, TRIGLYCERIDES, HDL) SEDIMENTATION RATE 2022-03-01 07:35:00 Brielle Aguero [facility] CBC WITH DIFF 2022-03-01 07:35:00 [facility] GLYCOSYLATED HEMOGLOBIN 2022-03-01 07:35:00 [facility] PROTHROMBIN TIME / INR 2022-03-01 07:35:00 Brielle Aguero [facility] D-DIMER 2022-03-01 07:35:00 [facility] ACTIVATED PARTIAL 2022-03-01 07:35:00 Laci [facility] THRMPLAS [facility] URINALYSIS 2022-03-01 07:35:00 [facility] N-TERMINAL PRO-BNP 2022-03-01 07:35:00 Brielle Aguero [facility] PHOSPHORUS 2022-03-01 07:35:00 [facility] LACTATE DEHYDROGENASE 2022-03-01 07:35:00 Laci Brielle [facility] MAGNESIUM 2022-03-01 07:35:00 [facility] FERRITIN SERUM 2022-03-01 07:35:00 [facility] HB ECG ROUTINE & RHYTHM 2022-03-01 07:31:15 Brielle Aguero [facility] XR CHEST 1 VW 2022-03-01 07:17:00 [facility] Plan of Care Planned Activity Planned Date Details Comments Source Future Scheduled 2022-08-[address] [facility] Test 00:00:00 (12+) [code = [facility] DEPRESSION SCREENING (12+)] Future Scheduled 2022-04-[address] [facility] Test 00:00:00 (#1) [code = [facility] INFLUENZA VACCINE (#1)] Future Scheduled [address] [facility] Test 00:00:00 malignant neoplasm of Medica l Center cervix (procedure) [code = 883825286] Future Scheduled 2008 DTAP/TDAP/TD VACCINES [facility] Test 00:00:00 (1 - Tdap) [code = Medical C enter DTAP/TDAP/TD VACCINES (1 - Tdap)] Future Scheduled 2007 HEPATITIS C SCRE[facility]ING [facility] Test 00:00:00 [code = HEPATITIS C Medical Center SCREENING] Future Scheduled [address] [facility] Test 00:00:00 [facility] r Screening (12+) [code = Tobacco Cessation Counseling and Screening (12+)] Future Scheduled 1990-03-28 COVID-19 VACCINE (#1) [facility] Test 00:00:00 [code = COVID-[address] VACCINE (#1)] Encounters Start End Encounter Admission Attending Care Care Encounter Source Date/Time Date/Time Type Type Clinicians Facility Department ID 2022-02-28 Inpatient ER [facility] Surgery [id number] [facility] 18:44:57 [facility] 2022-03-12 2022-03-12 [id number] Univers 13:37:39 23:59:[facility]22-[facility]-12 2022-03-12 [facility] [id number] Univers 13:00:00 23:59:00 Encounter Brandi SILVIA [id number] ity of [place]2.[place] [id number] [facility] 801 Branch 2022-03-06 2022-03-06 Transition CASSIUS Alfaro [id number] Univers 00:00:00 00:00:00 of Care Nolviayelena TELLEZ [id number] [place]2.[place] [id number] [facility] 403 Branch 2022-03-01 2022-03-05 Inpatient U [facility] [id number] Univers 00:41:00 19:11:00 BRANDI [facility] 2022-03-01 2022-03-05 [facility] Brandi CARTER [id number] [facility] 00:41:00 19:11:00 Encounter Dimitry Vega 350.1. 13.10 ity of [facility] 4.2.7.2.686 [place] [id number] [facility] 099 Branch Results Test Description Test Time Test Comments Results Result Comments Source COMP. METABOLIC PANEL (19454) 2022-03-03 07:28:06 Test Item Value Reference Range Interpretation Comme nts NA (test code = 8684134469) 138 mmol/L 135-145 K (test code = 6186580743) 4.1 mmol/L 3.5-5 CL (test code = 3592849429) 106 mmol/L 98-108 CO2 TOTAL (test code = 0441195784) 27 mmol/L 23-31 AGAP (test code = 1481205719) 2-16 BUN (test code = 2113340683) 7 mg/dL 7-23 GLUCOSE (test code = 0122223237) 103 mg/dL 70-110 CREATININE (test code = 0.47 mg/dL 0.5-1.04 L 6715116826) TOTAL BILI (test code = 0.2 mg/dL 0.1-1.6 7422589083) CALCIUM (test code = 5852311138) 9.0 mg/dL 8.6-10.6 T PROTEIN (test code = 3703418605) 6.8 g/dL 6.3-8.2 ALBUMIN (test code = 2915921155) 3.8 g/dL 3.5-5 ALK PHOS (test code = 5361729634) 90 U/L 34-122 ALTv (test code = 1742-6) 36 U/L 5-35 H AST(SGOT) (test code = 7492941755) 31 U/L 13-40 eGFR (test code = 2107284743) mL/min/1.73m2 MJ (test code = MJ) Association of Glomerular Filtration Rate (GFR) and Staging of Kidney Disease* + +-------- + ------+| GFR (mL/min/1.73 m2) ?| With Kidney Damage ?| ?Without Kidney Damage+ +-- + +| ?>90 ?| ?Stage one ?| ? Normal ?+ +------- + -------+| ?60-89 ?| ?Stage two ?| ? Decreased GFR ? + +-------- + ------+| ?30-59 ?| ?Stage three ?| ? Stage three ? + +-------- + ------+| ?15-29 ?| ?Stage four ? | ? Stage four ?+ +------- + -------+| ?<15 (or dialysis) ? ?| ?Stage five ? | ? Stage five ?+ +------- + -------+ *Each stage assumes the associated GFR level has been in effect for at least three months. ?Stages 1 to 5, with or without kidney disease, indicate chronic kidney disease. Notes: Determination of stages one and two (with eGFR >59mL/min/1.73 m2) requires estimation of kidney damage for at least three months as defined by structural or functional abnormalities of the kidney, manifested by either:Pathological abnormalities or Markers of kidney damage (including abnormalities in the composition of the blood or urine or abnormalities in imaging tests). Lab Interpretation (test code = Abnormal 24844-4) [facility]06 Test Item Value Reference Range Interpretation Comments MAGNESIUM (test code = 5248781850) 2.0 mg/dL 1.7-2.4 Lab Interpretation (test code = Normal 94249-9) [facility] WITH [id number] 07:08:10 Test Item Value Reference Range Interpretation Comments WBC (test code = See_Comment [Automated 0349-2) message] The sy stem which generated this result transmitted reference range : 4.30 - 11.10 10*3/?L. The reference range was not used to interpret this result as normal/abnormal . RBC (test code = See_Comment H [Automated 569-8) message] The sy stem which generated this result transmitted reference range : 3.93 - 5.25 10*6/?L. The reference range was not used to interpret this result as normal/abnormal . HGB (test code = 12.6 g/dL 11.6-15 718-7) HCT (test code = 40.2 % 35.7-45.2 4544-3) MCV (test code = 74.9 fL 80.6-95.5 L 787-2) MCH (test code = 23.5 pg 25.9-32.8 L 785-6) MCHC (test code = 31.3 g/dL 31.6-35.1 L 786-4) RDW-SD (test code = 44.6 fL 39-49.9 16871-3) RDW-CV (test code = 16.9 % 12-15.5 H 788-0) PLT (test code = See_Comment H [Automated 777-3) message] The sy stem which generated this result transmitted reference range : 166 - 358 10*3/ ?L. The reference r elyse was not used to interpret this result as normal/abnormal . MPV (test code = 9.4 fL 9.5-12.9 L 56823-2) NRBC/100 WBC (test See_Comment [Automat ed code = 7589307141) message] The system which generated this result transmitted reference range : 0.0 - 10.0 /100 WBCs. The refer ence range was not u sed to interpret th is result as normal/abnormal . NRBC x10^3 (test code See_Comment [Auto mated = 4676475913) message] The s ystem which generated this result transmitted reference range : 10*3/?L. The reference range was not used to interpret this result as normal/abnormal . GRAN MAT (NEUT) % 48.4 % (test code = 770-8) IMM GRAN % (test code 0.40 % = 8353302181) LYMPH % (test code = 34.7 % 736-9) MONO % (test code = 11.8 % 5905-5) EOS % (test code = 4.0 % 713-8) BASO % (test code = 0.7 % 706-2) GRAN MAT x10^3(ANC) 3.48 10*3/uL 1.88-7.09 (test code = 7080298493) IMM GRAN x10^3 (test 0.03 10*3/uL 0-0.06 code = 4487157853) LYMPH x10^3 (test code 2.50 10*3/uL 1.32-3.29 = 731-0) MONO x10^3 (test code 0.85 10*3/uL 0.33-0.92 = 742-7) EOS x10^3 (test code = 0.29 10*3/uL 0.03-0.39 711-2) BASO x10^3 (test code 0.05 10*3/uL 0.01-0.07 = 704-7) Lab Interpretation Abnormal (test code = 95682-8) General acute hospital TEST, THINPREP, [id number] 17:50:26 Test Item Value Reference Range Interpretation Comments SOURCE: (test Cervical/Endo code = 8001) cervical SLIDES: (test 1 code = 8011) LMP: (test code = 01/17/2022 8021) SPECIMEN (NOTE) Satisfactory f or ADEQUACY: (test evaluation. Endocervical code = 35253) cells/transfor mation zone component present. INTERPRETATION: NILM/NO (test code = EPITH. --------- 30738) ABNORMALITY;S -------- EE BELOW NEGATIVE FO R INTRAEPITHELIAL LESION OR MALIGNANCY ( NILM) --------- --------- --------- - APPRENTICE CARPENTER: JANAY (test code = SHAYY CLARKE( 8101) CP)IAC LOCATION: (test (NOTE) Specimens pr ocessed and code = 35483) [facility], [address] [place] [address], [place] [address], , CLIA: [id number] CPT: (test code = (NOTE) 80410 UNLE SS OTHERWISE 8140) INDICATED, COMP UTER AIDED AND CYTOTECHNOLOGIS T SCREENING PERFO RMED. The Pap test is a screening test with an inherent, but l ow probability of error. Your patient sh ould be reminded to con sult you immediately if she experiences any suspicious sign s or symptoms, regar dless of her Pap test re sult. An alternate repor t format containing imag es or consolidated pr ior Pap history is avai lable as applicable. CT/NG, TMA, [id number] 17:40:34 Test Item Value Reference Range Interpretation Comments GONORRHEA, TMA NEGATIVE NEGATIVE Assay method ology is (test code = nucleic acid am plification 43892) by transcriptio n mediated amplification ( TMA) utilizing the A ptima Combo 2 Assay. CHLAMYDIA, TMA NEGATIVE NEGATIVE Assay method ology is (test code = nucleic acid am plification 57993) by transcriptio n mediated amplification ( TMA) utilizing the A ptima Combo 2 Assay. HPV HIGH RISK WITH GENOTYPE, [id number] 16:20:58 Test Item Value Reference Range Interpretation Comments HPV HIGH RISK INTERP NEGATIVE NEGATIVE (test code = 71790) HPV 16 (test code = NEGATIVE 19535) HPV 18 (test code = NEGATIVE 33136) HPV, HR, OTHER NEGATIVE Testing meth odology is GENOTYPES (test code real-ti me PCR utilizing = 48201) hydrolysis prob es with the garbs Ha 4800 system. The mehran t individually de tects genotypes 16 an d 18, as well as the oth er 12 high risk types (31,33,35,39,45 ,51,52,56 ,58,59,66,68). The expected result is negative. A neg ative result does not rule out the presence of HPV not included in the genotype set, a low leve l of infection or sp ecimen sampling error. UNLESS OTHERWISE INDIC ATED, ALL TESTING PERFORM ED [facility], I MD. [address] [place] [id number] LABORATORY DIRE CTOR: SUSANNE CORRALES M.D. CLIA NUMBER [id number] [place] [id number] VAGINAL PATHOGENS DNA [id number] 10:45:54 Test Item Value Reference Range Interpretation Comments LYNN SPECIES (test code = ) NEGATIVE NEGATIVE G. VAGINALIS (test code = ) POSITIVE NEGATIVE A T. VAGINALIS (test code = ) NEGATIVE NEGATIVE HIV 1/2 4TH GEN, RFLX [id number] 04:36:36 Test Item Value Reference Range Interpretation Comments HIV 1/2 4TH GEN, RFLX CONF (test NON-REACTIVE NON-REACTIVE code = 3514) HEPATITIS PANEL, [id number] 04:36:36 Test Item Value Reference Range Interpretation Comments HEPATITIS A IgM (test NON-REACTIVE NON-REACTIVE code = 31908) HEPATITIS B CORE IgM NON-REACTIVE NON-REACTIVE (test code = 4644) HEPATITIS B SURF AG NON-REACTIVE NON-REACTIVE (test code = 2739) HEPATITIS C ANTIBODY NON-REACTIVE NON-REACTIVE (test code = 4675) INTERPRETATION (NOTE) Hepatitis A HEPATITIS A: (test serology shows no code = 2552) evidence of acu te hepatitis A. INTERPRETATION (NOTE) Hepatitis B HEPATITIS B: (test serology shows no code = 25261) evidence of ac maverick hepatitis B and no indication of exposure to hepatitis B vir us in the previous si xto eight months. INTERPRETATION (NOTE) Hepatitis C HEPATITIS C: (test serology shows no code = 15800) evidence of ex posure to hepatitisC v irus at this time. I t can take up to 12 m onths after exposure tothe hepatitis C vir us for antibodies to become detectab le in the blood in ce rtain patients. UNLES S OTHERWISE INDIC ATED, ALL TESTING PERFORMED [facility], [facility]. [address] [place] [id number] [facility] DIRECTOR: SUSANNE LEE M.D. CLIA NUMBER [id number] [facility] [place]. [id number] 04:10:38 Test Item Value Reference Range Interpretation Comments RPR RESULT (test code = NON-REACTIVE NON-REACTIVE 3501) RPR TITER (test code = 3500) NOT INDIC. TITER NOT INDIC."
[2022-09-01 01:44] LABS: Urine Blood Negative (Negative); Urine Glucose Negative (Negative); Urine Protein 1+ (Negative); Urine Specific Gravity >=1.030 (1.005-1.030); Urine pH 5.5 (5.0-7.0)
[2022-09-01 02:02] LABS: Absolute Lymphocytes (CBC) 4.1 K/uL (0.7-4.9); Hematocrit 39.2 % (36.0-45.0); Lymphocytes % 35.6 % (15.3-44.8); MCV 73.7 fL (80-100); MPV 8.2 fL (7.6-11.3); RBC Red Blood Cell Count 5.32 M/uL (3.86-4.86)
[2022-09-01 02:04] LABS: Protime INR 1.09
[2022-09-01 02:15] LABS: Urine Specific Gravity/Preg >1.030 (1.005-1.030)
[2022-09-01 02:31] LABS: Albumin 3.4 g/dL (3.4-5.0); Bilirubin Total 0.2 mg/dL (0.2-1.0); Potassium 3.2 mmol/L (3.5-5.1); Protein, Total 7.2 g/dL (6.4-8.2)
--- NOTE | 2022-09-01 03:19 | ER ---
Nurse's Notes [facility] Name: Eli Cisneros Age: 31 yrs Sex: Female : 1990 Arrival Date: 09/01/2022 Time: 00:55 Bed 15 Private MD: Diagnosis: Lower abdominal pain, unspecified;Diverticulosis of large intestine without perforation or abscess with bleeding Presentation: 09/01 01:09 Chief complaint: Patient states: "I've been having blood in my stool and blood coming as6 out of my rectum for several days. I'm having some lower abdominal pain too". Coronavirus screen: At this time, the client does not indicate any symptoms associated with coronavirus-19. Ebola Screen: No symptoms or risks identified at this time. Initial Sepsis Screen: Does the patient meet any 2 criteria? No. Patient's initial sepsis screen is negative. Does the patient have a suspected source of infection? No. Patient's initial sepsis screen is negative. Risk Assessment: Do you want to hurt yourself or someone else? Patient reports no desire to harm self or others. Onset of symptoms was August 28, 2022. 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 Flu vaccine is not up to date. - Social history:: Smoking status: Patient reports the use of cigarette tobacco products, smokes one-half pack cigarettes per day. - Family history:: not pertinent. - Hospitalizations: : No recent hospitalization is reported. Screenin:[address] [facility] ED Fall Risk Assessment (Adult) Score/Fall Risk Level 0 - 2 = Low Risk. Abuse as6 screen: Denies threats or abuse. Denies injuries from another. Nutritional screening: No deficits noted. Tuberculosis screening: No symptoms or risk factors identified. Assessment: 01:10 General: Appears in no apparent distress. Behavior is calm, cooperative. Pain: as6 Complains of pain in suprapubic area and left lower quadrant. Neuro: Level of Consciousness is awake, alert, obeys commands, Oriented to person, place, time, situation. Cardiovascular: Capillary refill < 3 seconds Patient's skin is warm and dry. Respiratory: Respiratory effort is even, unlabored, Respiratory pattern is regular, symmetrical. GI: Reports lower abdominal pain, rectal bleeding, bloody stool, nausea. Vital Signs: 01:09 BP 156 / 85; Pulse 87; Resp 16 S; Temp 97.9(O); Pulse Ox 97% on R/A; Weight 108.86 kg as6 (R); Height 5 ft. 1 in. (154.94 cm) (R); Pain 4/10; 02:19 BP 149 / 89; Pulse 80; Resp 16 S; Pulse Ox 94% on R/A; as6 03:32 BP 128 / 74; Pulse 80; Resp 19 S; Pulse Ox 96% on R/A; as6 01:09 Body Mass Index 45.35 (108.86 kg, 154.94 cm) as6 ED Course: 00:55 Patient arrived in ED. ag3 00:55 Jarred King MD is Attending Physician. rn 01:00 Garett Diaz RN is Primary Nurse. as6 01:09 Arm band placed on. as6 01:11 Triage completed. as6 01:50 Inserted saline lock: 20 gauge in right antecubital area, using aseptic technique. as6 Blood collected. 02:17 Bed in low position. Call light in reach. Side rails up X 1. as6 02:58 CT Abd/Pelvis - IV Contrast Only In Process Unspecified. EDMS 03:33 No provider procedures requiring assistance completed. IV discontinued, intact, as6 bleeding controlled, No redness/swelling at site. Pressure dressing applied. Administered Medications: 03:29 Drug: Cipro (ciprofloxacin) 500 mg Route: PO; as6 03:29 Follow up: Response: No adverse reaction as6 03:29 Drug: Flagyl (metroNIDAZOLE) 500 mg Route: PO; as6 03:29 Follow up: Response: No adverse reaction as6 03:29 Drug: HYDROcodone-acetaminophen 5 mg-325 mg 1 tabs Route: PO; as6 03:29 Follow up: Response: No adverse reaction as6 Medication: 02:17 VIS not applicable for this client. as6 Outcome: 03:19 Discharge ordered by . rn 03:33 Discharged to home ambulatory. as6 03:33 Condition: stable 03:33 Discharge instructions given to patient, Instructed on discharge instructions, follow up and referral plans. medication usage, Demonstrated understanding of instructions, follow-up care, medications, Prescriptions given X 3. 03:33 Patient left the ED. as6 Signatures: Dispatcher [employer] EDMS Jarred King MD MD rn Gomez, Alice [facility] Garett Diaz RN RN as6
--- NOTE | 2022-09-01 03:19 | EDPHYS ---
Physician Documentation [facility] Name: Eli Cisneros Age: 31 yrs Sex: Female : 1990 Arrival Date: 09/01/2022 Time: 00:55 Bed 15 Private MD: ED Physician Jarred King HPI: 09/01 01:06 This 31 yrs old Female presents to ER via Unassigned with complaints of Abdominal Pain, rn Rectal Bleeding. 01:06 The patient presents with abdominal pain in the left lower quadrant. Onset: The rn symptoms/episode began/occurred 1 week(s) ago. The symptoms do not radiate. Associated signs and symptoms: Pertinent positives: blood in stools, Pertinent negatives: nausea and vomiting, chest pain, diarrhea, fever, shortness of breath, vaginal discharge, vomiting blood. The symptoms are described as achy, crampy. Modifying factors: The symptoms are alleviated by nothing, the symptoms are aggravated by touching the area. Severity of pain: At its worst the pain was mild in the emergency department the pain is unchanged. The patient has experienced a previous episode. The patient has not recently seen a physician. 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 Flu vaccine is not up to date. - Social history:: Smoking status: Patient reports the use of cigarette tobacco products, smokes one-half pack cigarettes per day. - Family history:: not pertinent. - Hospitalizations: : No recent hospitalization is reported. ROS: 01:06 Constitutional: Negative for fever, chills, and weight loss, Cardiovascular: Negative rn for chest pain, palpitations, and edema, Respiratory: Negative for shortness of breath, cough, wheezing, and pleuritic chest pain, Abdomen/GI: + LLQ abd pain and rectal bleeding Back: Negative for injury and pain, MS/Extremity: Negative for injury and deformity, Skin: Negative for injury, rash, and discoloration, Neuro: Negative for headache, weakness, numbness, tingling, and seizure. Exam: 01:06 Constitutional: This is a well developed, well nourished patient who is awake, alert, rn and in no acute distress. Head/Face: Normocephalic, atraumatic. Cardiovascular: Regular rate and rhythm. No pulse deficits. Respiratory: No increased work of breathing, no retractions or nasal flaring. Abdomen/GI: Soft, mild tender LLQ, no guarding or rebound Skin: Warm, dry MS/ Extremity: Pulses equal, no cyanosis. Neuro: Awake and alert, GCS 15 Vital Signs: 01:09 BP 156 / 85; Pulse 87; Resp 16 S; Temp 97.9(O); Pulse Ox 97% on R/A; Weight 108.86 kg as6 (R); Height 5 ft. 1 in. (154.94 cm) (R); Pain 4/10; 02:19 BP 149 / 89; Pulse 80; Resp 16 S; Pulse Ox 94% on R/A; as6 03:32 BP 128 / 74; Pulse 80; Resp 19 S; Pulse Ox 96% on R/A; as6 01:09 Body Mass Index 45.35 (108.86 kg, 154.94 cm) as6 MDM: 00:56 Patient medically screened. rn 03:17 Differential diagnosis: appendicitis, bowel obstruction, diverticulitis, Endometriosis, rn non-specific abd pain, Peptic Ulcer Disease, Ureterolithiasis, urinary tract infection. Data reviewed: vital signs, nurses notes, lab test result(s), radiologic studies, CT scan, and as a result, I will discharge patient. Counseling: I had a detailed discussion with the patient and/or guardian regarding: the historical points, exam findings, and any diagnostic results supporting the discharge/admit diagnosis, lab results, radiology results, the need for outpatient follow up, to return to the emergency department if symptoms worsen or persist or if there are any questions or concerns that arise at home. Response to treatment: the patient's symptoms have mildly improved after treatment, and as a result, I will discharge patient. Special discussion: Based on the patient's Hx, exam, and Dx evaluation, there is no indication for emergent surgery or inpatient Tx. It is understood by the patient/guardian that if the Sx's persist or worsen they need to return immediately for re-evaluation. I discussed with the patient/guardian in detail that at this point there is no indication for admission to the hospital. It is understood, however, that if the symptoms persist or worsen the patient needs to return immediately for re-evaluation. Based on the history and exam findings, there is no indication for further emergent testing or inpatient evaluation. I discussed with the patient/guardian the need to see the plate grainer apprentice for further evaluation of the symptoms. I discussed with the patient/guardian the need to see the primary care provider for further evaluation of the symptoms. ED course: Pt with no acute findings on CT abdomen/pelvis. Possibly early diverticulitis. Will dc home with abx and given return precautions. . 09/01 00:57 Order name: CBC with Diff; Complete Time: 02:31 rn 09/01 03:16 Interpretation: Abnormal. rn 09/01 00:57 Order name: CMP; Complete Time: 02: 09/01 03:16 Interpretation: Normal except: K 3.2; GLUC 123. rn 09/01 00:57 Order name: Lipase; Complete Time: 02: 09/01 03:16 Interpretation: Within normal limits. rn 09/01 00:57 Order name: Protime (+inr); Complete Time: 02:31 rn 09/01 00:57 Order name: Ptt, Activated; Complete Time: 02:31 rn 09/01 01:44 Order name: Urine Dipstick-Ancillary; Complete Time: 02:31 EDNY 09/01 00:57 Order name: CT Abd/Pelvis - IV Contrast Only 09/01 00:57 Order name: IV Saline Lock; Complete Time: 01:35 rn 09/01 00:57 Order name: Labs collected and sent; Complete Time: 01:36 rn 09/01 00:57 Order name: Urine Dipstick-Ancillary (obtain specimen); Complete Time: 01:36 rn 09/01 02:07 Order name: Urine --Ancillary (enter results); Complete Time: 02:31 09/01 03:16 Interpretation: Within normal limits. 09/01 00:57 Order name: Urine Test (obtain specimen); Complete Time: 01:36 rn Administered Medications: 03:29 Drug: Cipro (ciprofloxacin) 500 mg Route: PO; as6 03:29 Follow up: Response: No adverse reaction as6 03:29 Drug: Flagyl (metroNIDAZOLE) 500 mg Route: PO; as6 03:29 Follow up: Response: No adverse reaction as6 03:29 Drug: HYDROcodone-acetaminophen 5 mg-325 mg 1 tabs Route: PO; as 03:29 Follow up: Response: No adverse reaction as6 Disposition Summary: 09/01/22 03:19 Discharge Ordered Location: Home rn Problem: new rn Symptoms: have improved rn Condition: Stable rn Diagnosis - Lower abdominal pain, unspecified rn - Diverticulosis of large intestine without perforation or abscess with bleeding rn Followup: rn - With: Private Physician - When: As needed - Reason: Recheck today's complaints, Re-evaluation by your physician Discharge Instructions: - Discharge Summary Sheet rn - Abdominal Pain, Adult rn - Diverticulosis rn - Gastrointestinal Bleeding rn Forms: - Medication Reconciliation Form rn - Thank You Letter rn - Antibiotic brand marketing intern - Prescription Opioid Use rn Prescriptions: - Flagyl 500 mg Oral Tablet - take 1 tablet by ORAL route every 8 hours for 10 days; 30 tablet; Refills: 0, rn Product Selection Permitted - Cipro 500 mg Oral Tablet - take 1 tablet by ORAL route every 12 hours for 10 days; 20 tablet; Refills: 0, rn Product Selection Permitted - Tramadol 50 mg Oral Tablet - take 1 tablet by ORAL route every 8 hours as needed; 12 tablet; Refills: 0, rn Product Selection Permitted Signatures: Dispatcher [employer] Jarred Alvarado MD MD rn Slawson, Ashby, RN RN as6
[2022-09-01] MEDS ORDERED: metroNIDAZOLE 500 MG TABLET ONE (03:25)
[2022-09-01] MEDS ORDERED: HYDROCODONE/APAP 5/325 MG TAB ONE (03:26)
[2022-09-01] MEDS ORDERED: CIPROFLOXACIN HCL 500 MG TAB ONE (03:26)
[2022-09-01 03:53] VITALS: TEMP 97.9
[2022-09-01 04:04] VITALS: BP 128/74; O2SAT 96
--- NOTE | 2022-09-01 14:48 | RAD REPORT ---
EXAM DESCRIPTION: CT - Abdomen Pelvis W Contrast - 09/01/2022 6:58 am CLINICAL HISTORY: 31 years Female abd pain and rectal bleeding COMPARISON: CT abdomen pelvis 02/28/2022 TECHNIQUE: CT of the abdomen and pelvis with intravenous contrast. All CT scans at this facility use dose modulation, iterative reconstruction, and/or weight based dosi ng when appropriate to reduce radiation dose to as low as reasonably achievable. FINDINGS: Lower thorax: Lung bases are clear Abdomen: Stomach: Within normal limits Liver: No focal lesions. No intrahepatic ductal distention. Gallbladder: Nondistended Pancreas: Within normal limits Spleen: Within normal limits Right kidney: No hydronephrosis. Subcentimeter ovoid hypodensity in the inferior pole, too small to c haracterize. Left kidney: No hydronephrosis. No focal lesion. Adrenal glands: Within normal limits Vascular structures: Within normal limits Nodes: No lymphadenopathy by size criteria Pelvis: Small bowel: No significant distention. Appendix: Within normal limits Colon: No distention or acute pericolonic edema. Colonic diverticulosis. Peritoneum: No free intraperitoneal fluid or air. Bones: No acute bone findings. Bladder: Unremarkable. Reproductive organs: No acute findings. Likely tampon device in the vaginal cuff. IMPRESSION: 1. No acute abdominopelvic findings. 2. Colonic diverticulosis without diverticulitis. 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 The interpreting radiologist is fully responsible for the content of the report.
== END 2022-09-01 03:33 | disposition home or self-care (01) ==
LOC: ER 00:51
DX: K57.31 Diverticulosis of large intestine without perforation or abscess with bleeding (principal)
CPT/HCPCS: 36415; 74177; 80053; 81003; 81025; 83690; 85025; 85610; 85730; Q9967

== ENCOUNTER 2022-09-11 23:31 | Emergency (ER) | payer SELFPAY ==
--- OUTSIDE RECORDS SUMMARY | 2022-09-11 23:35 | XMS REPORT | Continuity of Care Document ---
:[address] [facility] t Address [address] [place] [address] Care Team Providers Name Role Phone PCP, PATIENT DOES NOT HAVE A Primary Care Physician Unavaila ble BRANDI BYNUM Attending Clinician Unavailable Lourdes WHEATLEY, Brandi Attending Clinician Nolvia Alfaro LVN Attending Clinician Dimitry Vega MD Attending Clinician Vanessa Sosa MD Attending Clinician BRANDI BYNUM Admitting Clinician Unavailable VANESSA SOSA Admitting Clinician Unavailable Vanessa Sosa MD Admitting Clinician Problems Condition Condition Condition Status Onset Resolution Last Treating Co mments Source Name Details Category Date Date Treatment Clinician Date Morbid Morbid Disease Active Univers obesity obesity 7- ity of with body with body 00:00: [...] Active Univers ALLERGIE Class ity of S [facility] Social History Social Habit Start Date Stop Date Quantity Comments Source History of Cigarette Smoker Universi ty of tobacco use [facility] Exposure to 2022-02-27 2022-03-09 Not sure University of SARS-CoV-2 00:00:00 11:44:00 [facility] (event) [place] Tobacco use and 2022-03-01 2022-03-01 Smokeless tobacco Un iversity of exposure 00:00:00 00:00:00 non-user [facility] Sex Assigned At [birth year] SESAR [place] 00:00:00 [facility]:00 [facility] Smoking Status Start Date Stop Date Source Smokes tobacco daily 2022-03-01 00:00:00 [facility]ations Ordered Filled Start Stop Current Ordering Indication Dosage Frequency Signature Comments Components Source Medication Medication Date Date Medication? Clinician (SIG) Name Name iopamidol 2021- No [id number] 74mL 74 mL, Univers (ISOVUE 03-12 Intravenou [...] 03/05/22 at 1100, Routine iodixanoL 2021- No [id number] 80mL 80 mL, Univers (VISIPAQUE 03-05 Intravenou [...] at g 1000, Routine fluticasone 2021-0 Yes [id number] 1{spray Use 1 Univers propionate 7-21 } [place] in ity o f 50 00:00: each [place] mcg/actuati 00 nostril in Me dical on nasal the Branch spray morning. lanolin 0 Yes [id number] Apply to U nivers alcohol-mo- 03-05 area(s) as it y of w.pet-ceres 00:00: needed for [place] Crea cream 00 Dermatitis Med ical /Rash or Branch Itching. fluticasone 0 Yes [id number] 1{spray Use 1 Univers propionate 7-21 } [place] in ity o f 50 00:00: each [place] mcg/actuati 00 nostril in Me dical on nasal the Branch spray morning. lanolin 0 Yes [id number] [facility]-mo- 03-05 area(s) as it y of w.pet-ceres 00:00: needed for [place] Crea cream 00 Dermatitis Med ical /Rash or Branch Itching. fluticasone 0 Yes [id number] 1{spray Use 1 Univers propionate 7-21 } [place] in ity o f 50 00:00: each [place] mcg/actuati 00 nostril in Me dical on nasal the Branch spray morning. lanolin 0 Yes [id number] Apply to U [facility] alcohol-mo- 03-05 area(s) as it y of w.pet-ceres 00:00: needed for [place] Crea cream 00 Dermatitis Med ical /Rash or Branch Itching. atorvastati 2021- No [id number] 20mg Take 1 Univers n 20 mg 03-05-20 tablet by ity of tablet 00:00: 04:59 mouth at [place] 00 :00 bedtime Medical for 60 Branch days. albuterol-i 2021- No [id number] 1{puff} Inhale 1 Univers pratropium 7-21 09-20 Puff every it y of 20-100 00:00: 04:59 6 (six) [place] mcg/actuati 00 :00 hours for Med ical on inhaler 60 days. Bran h atorvastati 2021- No [id number] 20mg Take 1 Univers n 20 mg 7-21 09-20 tablet by ity of tablet 00:00: 04:59 mouth at [place] 00 :00 bedtime Medical for 60 Branch days. albuterol-i 2021- No [id number] 1{puff} Inhale 1 Univers pratropium 7-21 09-20 Puff every it y of 20-100 00:00: 04:59 6 (six) [place] mcg/actuati 00 :00 hours for Med ical on inhaler 60 days. Bran h atorvastati 2021- No [id number] 20mg Take 1 Univers n 20 mg 7-21 09-20 tablet by ity of tablet 00:00: 04:59 mouth at [place] 00 :00 bedtime Medical for 60 Branch days. albuterol-i 2021- No [id number] 1{puff} Inhale 1 Univers pratropium 7-21 09-20 Puff every it y of 20-100 00:00: 04:59 6 (six) [place] mcg/actuati 00 :00 hours for Med ical on inhaler 60 days. [facility] cetirizine 2021- No [id number] 10mg Take 1 Univers 10 mg 7-21 08-21 tablet by ity of tablet 00:00: 04:59 mouth in [place] 00 :00 the [facility] morning Branch for 30 days. cetirizine 2021- No [id number] 10mg Take 1 Univers 10 mg 7-21 08-21 tablet by ity of tablet 00:00: 04:59 mouth in [place] 00 :00 the [facility] morning Branch for 30 days. cetirizine 2021- No [id number] 10mg Take 1 Univers 10 mg 7-21 08-21 tablet by ity of tablet 00:00: 04:59 mouth in [place] 00 :00 the [facility] morning Branch for 30 days. ciprofloxac 2021- No [id number] 500mg Take 1 Univers in HCl 500 7-21 07-23 tablet by ity of mg tablet 00:00: 04:59 mouth [place] 00 :00 every 12 Medical (twelve) Branch hours for 1 day. ciprofloxac 2021- No [id number] 500mg Take 1 Univers in HCl 500 03-05 tablet by ity of mg tablet 00:00: 04:59 mouth [place] 00 :00 every 12 Medical (twelve) Branch hours for 1 day. diphenhydrA 2021- No 25mg 25 mg, Uni vers MINE 03-04 Oral, ity of (BENADRYL) 14:45: 17:09 ONCE, 1 Best as tablet 25 00 :00 dose, On Medica l mg [facility] 03/04/22 at 0945, Routine diphenhydrA 0 Yes 25mg 25 mg, Univ ers MINE 03-04 Oral, ity of (BENADRYL) 02:04: Q4HPRN, [place] tablet 25 40 Starting Medica l mg on [facility] 03/03/22 at 2104, Until Discontinu ed, Routine, Itching, Mild Rash lanolin Yes Topical, Univer s alcohol-mo- 03-04 PRN, ity of w.pet-ceres 02:04: [place] (EUCERIN[place] 18 on [facility] Medical cream 03/03/22 at Branch 210, Until Discontinu ed, Routine, Dermatitis /Rash, Itching iodixanoL 2021- No [id number] 80mL 80 mL, Univers (VISIPAQUE 03-03 Intravenou it y of 270-150 mL) 14:43: 14:43 s, ONCE, 1 [place] injection 00 :00 dose, On Medica l 80 mL [facility] 03/03/22 at 1000, Routine cetirizine Yes 10mg 10 mg, Unive rs (ZYRTEC) 03-02 Oral, ity of tablet 10 15:00: DAILY, [place] mg 00 First dose Medical on [facility] 03/02/22 at 1000, Until Discontinu ed, Routine magnesium 2021- No 4g 4 g, IV Univ ers sulfate in 03-02 Piggyback, it y of water 4 13:30: 14:51 ONCE, 1 [place] gram/50 mL 00 :00 dose, On Medic al (8 %) IV [facility] Piggyback 4 03/02/22 at g 0830, Routine atorvastati 0 Yes 20mg 20 mg, Univ ers n (LIPITOR) 7-18 Oral, QHS, it y of tablet 20 02:00: First dose [place] mg 00 on [facility] 03/01/22 at Branch 2100, Until Discontinu ed, Routine fluticasone Yes 1{spray 1 [place], [facility] propionate 18 } Nasal, ity of 50 00:45: DAILY, [place] mcg/actuati 00 First dose Me dical on nasal on [facility] spray 1 03/01/22 at [place] 1945, Until Discontinu ed, Routine piperacilli Yes 3.375g 3.375 g, [facility] n-tazobacta 03-01 IV ity of m (ZOSYN) 21:00: [place]gyback, [place] 3.375 g in 00 Q6H ABX, Medic al NaCl 0.9% First dose Bran ch (NS) 50 mL (after MINI-BAG last modificati on) on [place] 03/01/22 at 1600, Until Discontinu ed, Administer over 4 Hours, 50 mL
Reas on for Anti-Infec tive: Documented Infection& lt;br>Docu mented Infection Site: Abdominal< br>Duratio n of Therapy: 7 days albuterol-i Yes 1{puff} 1 Puff, [facility] pratropium 03-01 Inhalation ity of (COMBIVENT 15:45: , Q6H, [place] RESPIMAT) 00 First dose Medi jason 20-100 on [facility] mcg/actuati 03/01/22 at on inhaler 1045, 1 Puff Until Discontinu ed, Routine
Is this order for a patient with suspected or confirmed COVID-19 infection? Yes pantoprazol Yes 40mg 40 mg, Univ ers e -17 Oral, ity of (PROTONIX) 14:00: DAILY, [place] EC tablet 00 First dose Medi jason 40 mg on [facility] 03/01/22 at 0900, Until Discontinu ed, Routine heparin Yes 5000U 5,000 Univers (porcine) - Units, ity of injection 13:00: Subcutaneo [place] 5,000 Units 00 us, Q12H, Med ical First dose Branch on [place] 03/01/22 at 0800, Until Discontinu ed, Routine [...] Oral, ity of hen (NORCO 06:55: [facility]PRN[facility] 5-325 mg 07 Starting Medi jason tablet 1 on [place] tablet 03/01/22 at 0155, Until Discontinu ed, Routine, Pain (scale 7-10) acetaminoph 2021-0 Yes 1{tbl} 1 tablet, Univers en-codeine 7 Oral, ity of (TYLENOL 06:54: Q4HPRN, [place] #3) 300-30 49 Starting Medic al mg tablet 1 on [place] tablet 03/01/22 at 0154, Until Discontinu ed, Routine, Pain (scale 4-6) ondansetron 2021-0 Yes 4mg 4 mg, Slow Univers (ZOFRAN 7-17 IV Push, ity of (PF)) 06:54: Q6HPRN, [place] injection 4 29 Nausea and Me dical mg Vomiting Branch (N/V), Starting on 03/01/22 at 0154
Do ses of ondansetro n 16 mg and above need to be administer ed via IV piggyback. For Dose >=24mg ECG monitoring is advisable.
acetaminoph Yes 650mg 650 mg, Un ginette en 03-01 Oral, ity of (TYLENOL) 06:31: Q6R, [place] tablet 650 35 Starting Medic al mg on [place] 03/01/22 at 0131, Until Discontinu ed, Routine, Pain (scale 1-3) Vital Signs Vital Name Observation Time Observation Value Comments Source Systolic blood 2022-03-05 16:13:00 129 mm[Hg] [facility] Diastolic blood 2022-03-05 16:13:00 75 mm[Hg] [facility] Heart rate 2022-03-05 16:13:00 80 /min [facility] Body temperature 2022-03-05 16:13:00 36.44 [facility] Respiratory rate 2022-03-05 16:13:00 16 /min [facility] Oxygen saturation in 2022-03-05 16:13:00 97 /min [facility] Arterial blood by [facility] Pulse oximetry [place] Body weight 2022-03-04 06:45:00 121.972 kg [facility] BMI 2022-03-04 06:45:00 50.81 kg/m2 [facility] Body height 2022-03-01 06:19:00 154.9 cm [facility] Procedures Procedure Date / Time Performing Clinician Source Performed CT ABDOMEN PELVIS W 2022-03-05 14:46:09 Graham [facility] CONTRAST [facility] MAGNESIUM 2022-03-05 11:05:00 Graham [facility] HEPATIC FUNCTION PANEL 2022-03-05 11:05:[address] [facility] ([id number]) (ALB,T.PRO,[facility] T,BU/BC,ALT,AST,ALK PHOS) BASIC METABOLIC PANEL 2022-03-05 11:05:00 Graham [facility] (NA, K, CL, CO2, Medical [place] GLUCOSE, BUN, CREATININE, CA) CBC WITH DIFF 2022-03-05 11:05:00 Graham [facility] MAGNESIUM 2022-03-04 10:17:00 Graham [facility] COMP. METABOLIC PANEL 2022-03-04 10:17:00 Joni Stevenson [facility] ([id number]) [facility] CBC WITH DIFF 2022-03-04 10:17:00 Graham [facility] CT ABDOMEN PELVIS W 2022-03-03 14:47:55 Karl Gallegos [facility] MAGNESIUM 2022-03-03 06:15:00 [facility] COMP. METABOLIC PANEL 2022-03-03 06:15:00 Pranav Stringer [facility] ([id number]) [facility] CBC WITH DIFF 2022-03-03 06:15:00 [facility] MAGNESIUM 2022-03-02 10:15:00 [facility] BASIC METABOLIC PANEL 2022-03-02 10:15:00 Karl Gallegos [facility] (NA, K, CL, CO2, Medical Branch GLUCOSE, BUN, CREATININE, CA) PHOSPHORUS 2022-03-02 10:15:[address] [facility] [address] ABDOMEN PELVIS W 2022-03-01 12:34:10 Karl Gallegos [facility] BLOOD CULTURE SCREEN 2022-03-01 12:22:00 Karl Gallegos [facility] PHOSPHORUS 2022-03-01 07:35:00 Brielle Aguero [facility] LACTATE DEHYDROGENASE 2022-03-01 07:35:00 Brielle Aguero [facility] MAGNESIUM 2022-03-01 07:35:00 Brielle Aguero [facility] FERRITIN SERUM 2022-03-01 07:35:00 [facility] C-REACTIVE PROTEIN 2022-03-01 07:35:00 Brielle Aguero [facility] THYROID STIMULATING 2022-03-01 07:35:00 [facility] HEPATIC FUNCTION PANEL 2022-03-01 07:35:00 Brielle Aguero [facility] ([id number]) (ALB,T.PRO,BILI Medical Branch T,BU/BC,ALT,AST,ALK PHOS) BASIC METABOLIC PANEL 2022-03-01 07:35:00 Brielle Aguero [facility] (NA, K, CL, CO2, Medical Branch GLUCOSE, BUN, CREATININE, CA) LIPID PANEL 2022-03-01 07:35:00 Laci [facility] ([id number])(TOTAL Medical Branch CHOLESTEROL, TRIGLYCERIDES, HDL) SEDIMENTATION RATE 2022-03-01 07:35:00 Laci [facility] CBC WITH DIFF 2022-03-01 07:35:00 L[facility] GLYCOSYLATED HEMOGLOBIN 2022-03-01 07:35:00 Laci [facility] (A1C) [facility] PROTHROMBIN TIME / INR 2022-03-01 07:35:[facility] D-DIMER 2022-03-01 07:35:00 L[facility] ACTIVATED PARTIAL 2022-03-01 07:35:00 Laci [facility] THRMPLAS BERNIE [facility] URINALYSIS 2022-03-01 07:35:00 Laci [facility] N-TERMINAL PRO-BNP 2022-03-01 07:35:00 Laci [facility] HB ECG ROUTINE & RHYTHM 2022-03-01 07:31:[address] [facility] STRIP [facility] Branch XR CHEST 1 VW 2022-03-01 07:17:00 Laci [facility] Plan of Care Planned Activity Planned Date Details Comments Source Future Scheduled 2022-08-[address] [facility] Test 00:00:00 (12+) [code = Medical Center DEPRESSION SCREENING (12+)] Future Scheduled 2022-08-[address] [facility] Test 00:00:00 (12+) [code = [facility] DEPRESSION SCREENING (12+)] Future Scheduled 2022-04-[address] [facility] Test 00:00:00 (#1) [code = [facility] INFLUENZA VACCINE (#1)] Future Scheduled 2022-04-[address] [facility] Test 00:00:00 (#1) [code = Medical Center INFLUENZA VACCINE (#1)] Future Scheduled [address] [facility] 00:00:00 malignant ne[facility] of [facility] cervix (procedure) [code = 470283479] Future Scheduled [address] [facility] Test 00:00:00 malignant neoplasm of [facility] cervix (procedure) [code = 557980327] Future Scheduled 2008 DTAP/TDAP/TD VACCINES [facility] Test 00:00:00 (1 - Tdap) [code = Medical C enter DTAP/TDAP/TD VACCINES (1 - Tdap)] Future Scheduled 2008 DTAP/TDAP/TD VACCINES [facility] Test 00:00:00 (1 - Tdap) [code = Medical C enter DTAP/TDAP/TD VACCINES (1 - Tdap)] Future Scheduled 2007 HEPATITIS C [facility]CRE[facility]ING [facility] 00:00:00 [code = HEPATITIS C Medical Center SCREENING] Future Scheduled 2007 HEPATITIS C [facility]CRE[facility]ING [facility] 00:00:00 [code = HEPATITIS C Medical Center SCREENING] Future Scheduled [address] [facility] Test 00:00:00 Counseling and Medical Cente r Screening (12+) [code = Tobacco Cessation Counseling and Screening (12+)] Future Scheduled [address] [facility] Test 00:00:00 [facility]ing [facility] Medical Cente r Screening (12+) [code = Tobacco Cessation Counseling and Screening (12+)] Future Scheduled 1990-03-28 COVID-19 VACCINE (#1) [facility] 00:00:00 [code = COVID-[address] VACCINE (#1)] Future Scheduled 1990-03-28 COVID-19 VACCINE (#1) [facility] 00:00:00 [code = COVID-[address] VACCINE (#1)] Encounters Start End Encounter Admission Attending Care Care Encounter Source Date/Time Date/Time Type Type Clinicians Facility Department ID 2022-02-28 Inpatient ER [facility] Surgery [id number] [facility] 18:44:57 [facility] 2022-03-122022-03-12 [id number] Univers 13:37:39 23:59:00 BRANDI ity [facility] 2022-03-12 2022-03-12 [facility] [id number] Univers 13:00:00 23:59:00 Encounter Brandi VEGA [id number] ity of [place] 4.2.7.2.686 [place] [facility] [id number] [facility] 801 Branch 2022-03-06 2022-03-06 Transition CASSIUS Alfaro [id number] Univers 00:00:00 00:00:00 of Care Nolvia ASHTONY [id number] ity of [place] 4.2.7.2.686 [facility] [id number] [facility] 403 Branch 2022-03-01 2022-03-05 Inpatient [facility] [id number] Univers 00:41:00 19:11:00 BRANDI ity [facility] 2022-03-01 2022-03-05 [facility] RAUL [id number] Univers 00:41:00 19:11:00 Encounter Dimitry Vega 350.1. 13.10 ity of [facility] 4.2.7.2.686 [place] [id number] [facility] 099 [place] Results Test Description Test Time Test Comments Results Result Comments Source COMP. METABOLIC PANEL (79187) 2022-03-03 07:28:06 Test Item Value Reference Range Interpretation Comme nts NA (test code = 5013924787) 138 mmol/L 135-145 K (test code = 1162467307) 4.1 mmol/L 3.5-5 CL (test code = 5965673764) 106 mmol/L 98-108 CO2 TOTAL (test code = 6652871711) 27 mmol/L 23-31 AGAP (test code = 8877450284) 2-16 BUN (test code = 7195113241) 7 mg/dL 7-23 GLUCOSE (test code = 7035386685) 103 mg/dL 70-110 CREATININE (test code = 0.47 mg/dL 0.5-1.04 L 7167308646) TOTAL BILI (test code = 0.2 mg/dL 0.1-1.2 1602983053) CALCIUM (test code = 1621403389) 9.0 mg/dL 8.6-10.6 T PROTEIN (test code = 2923392714) 6.8 g/dL 6.3-8.2 ALBUMIN (test code = 7099568950) 3.8 g/dL 3.5-5 ALK PHOS (test code = 4173441995) 90 U/L 34-122 ALTv (test code = 1742-6) 36 U/L 5-35 H AST(SGOT) (test code = 8285895284) 31 U/L 13-40 eGFR (test code = 2165225819) mL/min/1.73m2 MJ (test code = MJ) Association [...] tests). Lab Interpretation (test code = Abnormal 67517-2) [facility]06 Test Item Value Reference Range Interpretation Comments MAGNESIUM (test code = 1255514740) 2.0 mg/dL 1.7-2.4 Lab Interpretation (test code = Normal 61119-1) [facility] WITH [id number] 07:08:10 Test Item Value Reference Range Interpretation Comments WBC (test code = See_Comment [Automated 6690-2) message] The sy stem which generated this result transmitted reference range : 4.30 - 11.10 10*3/?L. The reference range was not used to interpret this result as normal/abnormal . RBC (test code = See_Comment H [Automated 789-8) message] The sy stem which generated this [...] RDW-SD (test code = 44.6 fL 39-49.9 77958-7) RDW-CV (test code = 16.9 % 12-15.5 H 788-0) PLT (test code = See_Comment H [Automated 777-3) message] The sy stem which generated this result transmitted reference range : 166 - 358 10*3/ ?L. The reference r elyse was not used to interpret this result as normal/abnormal . MPV (test code = 9.4 fL 9.5-12.9 L 48895-8) NRBC/100 WBC (test See_Comment [Automat ed code = 1698967712) message] The system which generated this result transmitted reference range : 0.0 - 10.0 /100 WBCs. The refer ence range was not u sed to interpret th is result as normal/abnormal . NRBC x10^3 (test code See_Comment [Auto mated = 0528892199) message] The s ystem which generated this result transmitted reference range : 10*3/?L. The reference range was not used to interpret this result as normal/abnormal . GRAN MAT (NEUT) % 48.4 % (test code = 770-8) IMM GRAN % (test code 0.40 % = 3031348058) LYMPH % (test code = 34.7 % 736-9) MONO % (test code = 11.8 % 5905-5) EOS % (test code = 4.0 % 713-8) BASO % (test code = 0.7 % 706-2) GRAN MAT x10^3(ANC) 3.48 10*3/uL 1.88-7.09 (test code = 1588176945) IMM GRAN x10^3 (test 0.03 10*3/uL 0-0.06 code = 2890457275) LYMPH x10^3 (test code 2.50 10*3/uL 1.32-3.29 = 731-0) MONO x10^3 (test code 0.85 10*3/uL 0.33-0.92 = 742-7) EOS x10^3 (test code = 0.29 10*3/uL 0.03-0.39 711-2) BASO x10^3 (test code 0.05 10*3/uL 0.01-0.07 = 704-7) Lab Interpretation Abnormal (test code = 45961-3) [facility] TEST, THINPREP, [id number] 17:50:26 Test Item Value Reference Range Interpretation Comments SOURCE: (test Cervical/Endo code = 8001) cervical SLIDES: (test 1 code = 8011) LMP: (test code = 01/17/2022 8021) SPECIMEN (NOTE) Satisfactory f or ADEQUACY: (test evaluation. Endocervical code = 53150) cells/transfor mation zone component present. INTERPRETATION: NILM/NO (test code = EPITH. --------- 83592) ABNORMALITY;S -------- EE BELOW NEGATIVE FO R INTRAEPITHELIAL LESION OR MALIGNANCY ( NILM) --------- --------- --------- - INDUSTRIAL AUTOMATION ENGINEER: JANAY (test code = SHAYY CLARKE( 8101) CP)IAC LOCATION: (test (NOTE) Specimens pr ocessed and code = 28606) [facility] [address] [facility] [place] [address], , CLIA: [id number] CPT: (test code = (NOTE) 32176 UNLE SS OTHERWISE 8140) INDICATED, COMP UTER AIDED AND CYTOTECHNOLOGIS T SCREENING PERFO RMED. The Pap test is a s creening test with an in herent, but low probabi lity of error. Your pat ient should be remin ded to consult you imm ediately if she experien deondre any suspicious sign s or symptoms, regar dless of her Pap test re sult. An alternate repor t format containing imag es or consolidated pr ior Pap history is aveliu labyanelis as applicable. CT/NG, TMA, [id number] 17:40:34 Test Item Value Reference Range Interpretation Comments GONORRHEA, TMA NEGATIVE NEGATIVE Assay metho dology is (test code = nucleic acid am plification 43380) by transcriptio n mediated amplification ( TMA) utilizing the A ptima Combo 2 Assay. CHLAMYDIA, TMA NEGATIVE NEGATIVE Assay method ology is (test code = nucleic acid am plification 35955) by transcriptio n mediated amplification ( TMA) utilizing the A ptima Combo 2 Assay. HPV HIGH RISK WITH GENOTYPE, [id number] 16:20:58 Test Item Value Reference Range Interpretation Comments HPV HIGH RISK INTERP NEGATIVE NEGATIVE (test code = 95919) HPV 16 (test code = NEGATIVE 22409) HPV 18 (test code = NEGATIVE 99758) HPV, HR, OTHER NEGATIVE Testing meth odology is GENOTYPES (test code real-ti me PCR utilizing = 65117) hydrolysis prob es with the Zibby Ha 4800 system. The mehran t individually [...] ALL TESTING PERFORM ED ATCLINICAL PATH OLOGY [facility], [address] [address] LABORATORY DIRE CTOR: SUSANNE CORRALES M.D. CLIA NUMBER [id number] [facility] [place] [id number] VAGINAL PATHOGENS DNA [id number] 10:45:54 Test Item Value Reference Range Interpretation Comments LYNN SPECIES (test code = 37848) NEGATIVE NEGATIVE G. VAGINALIS (test code = 82875) POSITIVE NEGATIVE A T. VAGINALIS (test code = 61865) NEGATIVE NEGATIVE HIV 1/2 4TH GEN, RFLX [id number] 04:36:36 Test Item Value Reference Range Interpretation Comments HIV 1/2 4TH GEN, RFLX CONF (test NON-REACTIVE NON-REACTIVE code = 3514) HEPATITIS PANEL, [id number] 04:36:36 Test Item Value Reference Range Interpretation Comments HEPATITIS A IgM (test NON-REACTIVE NON-REACTIVE code = 03446) HEPATITIS B CORE IgM NON-REACTIVE NON-REACTIVE (test code = 4644) HEPATITIS B SURF AG NON-REACTIVE NON-REACTIVE (test code = 2739) HEPATITIS C ANTIBODY NON-REACTIVE NON-REACTIVE (test code = 4675) INTERPRETATION (NOTE) Hepatitis A HEPATITIS A: (test serology shows no code = 2552) evidence of acu te hepatitis A. INTERPRETATION (NOTE) Hepatitis B HEPATITIS B: (test serology shows no code = 98449) evidence of ac afognak hepatitis B and no indication of exposure to hepatitis B vir us in the previous si xto eight months. INTERPRETATION (NOTE) Hepatitis C HEPATITIS C: (test serology shows no code = 33724) evidence of ex posure to hepatitisC v irus at this time. I t can take up to 12 m onths after exposure tothe hepatitis C vir us for antibodies to become detectab le in the blood in ce rtain patients. UNLES S OTHERWISE INDIC ATED, ALL TESTING PERFORMED [facility] [facility], [place] [address] [facility], [place] [id number] [place] [address] DIRECTOR: SUSANNE LEE M.D. [place] NUMBER [id number] [place] [id number] 04:10:38 Test Item Value Reference Range Interpretation Comments RPR RESULT (test code = NON-REACTIVE NON-REACTIVE 3501) RPR TITER (test code = 3500) NOT INDIC. TITER NOT INDIC."
[2022-09-11] MEDS ORDERED: ALBUTEROL 2.5 MG/3 ML NEB SOL ONE (23:59)
[2022-09-11] MEDS ORDERED: METHYLPREDNISOLONE 125 MG INJ ONE (23:59)
[2022-09-11] MEDS ORDERED: IPRATROPIUM BROM 0.5MG/2.5ML ONE (23:59)
[2022-09-12 00:17] LABS: Absolute Lymphocytes (CBC) 4.2 K/uL (0.7-4.9); Hematocrit 40.1 % (36.0-45.0); Lymphocytes % 24.5 % (15.3-44.8); MCV 74.2 fL (80-100)
[2022-09-12 00:35] LABS: Potassium 3.6 mmol/L (3.5-5.1); Troponin High Sensitivity 4.7 pg/mL (<58.9)
--- NOTE | 2022-09-12 00:47 | EDPHYS ---
Physician Documentation [facility] Name: Eli Cisneros Age: 31 yrs Sex: Female : 1990 Arrival Date: 09/11/2022 Time: 23:33 Bed 8 Private MD: ED Physician Lee Regalado HPI: 09/11 23:52 This 31 yrs old Female presents to ER via Ambulatory with complaints of Chest Pain, kb Back Pain. 23:52 The patient or guardian reports chest pain that is located primarily in the anterior kb chest wall, right. The pain radiates to right back. Associated signs and symptoms: Pertinent positives: shortness of breath. The chest pain is described as aching. Duration: The patient or guardian reports a single episode. Modifying factors: The symptoms are alleviated by nothing. the symptoms are aggravated by nothing. Severity of pain: At its worst the pain was moderate in the emergency department the pain is unchanged. The patient has not experienced similar symptoms in the past. The patient has not recently seen a physician. Pt reports right sided chest pain that radiates to the back that is worse with movement for 4 days. Also reports shortness of breath. Historical: - Allergies: 23:44 Ceclor; kl - Home Meds: 23:44 atorvastatin 20 mg Oral tab 1 tab once daily [Active]; pantoprazole 40 mg Oral grps 1 kl packet once daily [Active]; - PMHx: 23:44 Anxiety; Diverticulitis; Gastroesophageal reflux disease; Hypercholesterolemia; kl - PSHx: 23:44 Adenoid excision; section; Tonsillectomy; kl - Immunization history:: Adult Immunizations not up to date. - Social history:: Smoking status: Patient reports the use of cigarette tobacco products, smokes one-half pack cigarettes per day. ROS: 23:50 Constitutional: Negative for fever, chills, and weight loss. kb 23:50 Cardiovascular: Positive for chest pain, with movement. 23:50 All other systems are negative. Exam: 23:49 Constitutional: This is a well developed, well nourished patient who is awake, alert, kb and in no acute distress. Head/Face: Normocephalic, atraumatic. ENT: Moist Mucous membranes Cardiovascular: Regular rate and rhythm with a normal S1 and S2. No gallops, murmurs, or rubs. No pulse deficits. Abdomen/GI: Soft, non-tender. No distention Skin: Warm, dry with normal turgor. Normal color. MS/ Extremity: Pulses equal, no cyanosis. Neurovascular intact. Full, normal range of motion. Neuro: Awake and alert, GCS 15, oriented to person, place, time, and situation. Moves all extremities. Normal gait. Psych: Awake, alert, with orientation to person, place and time. Behavior, mood, and affect are within normal limits. 23:49 ECG was reviewed by the Attending Physician. 23:49 Respiratory: the patient does not display signs of respiratory distress, Respirations: normal, Breath sounds: wheezing: expiratory that is moderate, is scattered. Vital Signs: 23:43 BP 141 / 66; Pulse 97; Resp 20; Temp 97(O); Pulse Ox 98% on R/A; kl 09/12 01:01 BP 119 / 59; Pulse 87; Resp 16; Pulse Ox 100% on R/A; jb4 MDM: 09/11 23:37 Patient medically screened. 23:51 Data reviewed: vital signs, nurses notes. 23:51 Differential diagnosis: chest wall pain, pneumonia, costochondritis, pleurisy, kb bronchitis. 09/12 00:45 Consideration of Admission/Observation Escalation of care including kb admission/observation considered. 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 ED course: Resp even and unlabored. O2 100% on room air after treatment. Pt will follow up with cardiology and PCP. Will return for worsening symptoms. 00:47 I considered the following discharge prescriptions or medication management in the emergency department Antibiotics prescribed due to current smoking status. 09/11 23:41 Order name: CBC with Diff; Complete Time: 00:26 kb 09/11 23:41 Order name: Basic Metabolic Panel; Complete Time: 00:37 kb 09/11 23:41 Order name: Troponin High Sensitivity; Complete Time: 00:37 kb 09/11 23:41 Order name: Chest Single View XRAY 09/11 23:41 Order name: EKG; Complete Time: 23:42 kb 09/11 23:41 Order name: EKG - Nurse/Tech; Complete Time: 23:49 kb EC/27 23:49 Rate is 78 beats/min. Rhythm is regular. QRS Sparks is Normal. [place] interval is normal at kb 116 msec. QRS interval is normal at 90 msec. QT interval is normal at 421 msec. Administered Medications: 09/12 00:01 Drug: DuoNeb (albuterol 2.5 mg, ipratropium 0.5 mg) (3:1) (2.5 mg - 0.5 mg) 3 ml Route: jb4 Nebulizer; 01:01 Follow up: Response: No adverse reaction jb4 00:01 Drug: SOLU-Medrol (methylPrednisoLONE) 125 mg Route: IVP; Site: right antecubital; jb4 01:01 Follow up: Response: No adverse reaction jb4 01:00 Drug: Ketorolac 15 mg Route: IVP; Site: right antecubital; jb4 01:00 Follow up: Response: Medication administered at discharge. jb4 Disposition: 03:51 Co-signature as Attending Physician, Lee Regalado DO I reviewed the patient's care ms3 provided by the Advanced Practice Provider and agree with the diagnosis and treatment plan. Disposition Summary: 09/12/22 00:46 Discharge Ordered Location: Home kb Condition: Stable kb Diagnosis - Chest pain on breathing kb - Wheezing kb Followup: kb - With: Emergency Department - When: As needed - Reason: Worsening of condition Followup: kb - With: Private Physician - When: 2 - 3 days - Reason: Recheck today's complaints, Continuance of care, Re-evaluation by your physician Discharge Instructions: - Discharge Summary Sheet kb - Costochondritis, [id number] kb - Chest Wall Pain, [id number]-[id number] kb - Acute Bronchitis, Adult, Nasi-tq-Obpe kb - Pleurisy, [id number] kb Forms: - Medication Reconciliation Form kb - Thank You Letter kb - Antibiotic Education kb - Prescription Opioid Use kb Prescriptions: - Prednisone 20 mg Oral Tablet - take 1 tablet by ORAL route once daily for 5 days; 5 tablet; Refills: 0, kb Product Selection Permitted - Diclofenac Sodium 75 mg Oral tablet,delayed release (DR/EC) - take 1 tablet by ORAL route 2 times per day As needed; 30 tablet; Refills: 0, kb Product Selection Permitted - orphenadrine citrate 100 mg Oral Tablet Sustained Release - take 1 tablet by ORAL route 2 times per day As needed; 20 tablet; Refills: 0, kb Product Selection Permitted - Zithromax 500 mg Oral Tablet - take 1 tablet by ORAL route once daily for 5 days; 5 tablet; Refills: 0, kb Product Selection Permitted Signatures: Dispatcher [employer] Rafia Marx, NIXON-C NIXON-Hilary Howard, RN RN kl Lenny Gomez RN RN jb4 Lee Regalado DO DO ms3
--- NOTE | 2022-09-12 00:47 | ER ---
Nurse's Notes [facility] Name: Eli Cisneros Age: 31 yrs Sex: Female : 1990 Arrival Date: 09/11/2022 Time: 23:33 Bed 8 Private MD: Diagnosis: Chest pain on breathing;Wheezing Presentation: 09/11 23:43 Chief complaint: Patient states: right upper chest pain radiates around to back x 4 kl days pain worsening. Coronavirus screen: Vaccine status: Patient reports being unvaccinated. Ebola Screen: Patient negative for fever greater than or equal to 101.5 degrees Fahrenheit, and additional compatible Ebola Virus Disease symptoms. Initial Sepsis Screen: Does the patient meet any 2 criteria? No. Patient's initial sepsis screen is negative. Does the patient have a suspected source of infection? No. Patient's initial sepsis screen is negative. Risk Assessment: Do you want to hurt yourself or someone else? Patient reports no desire to harm self or others. 23:43 Method Of Arrival: Ambulatory 23:43 Acuity: AMBER 3 kl Triage Assessment: 23:45 General: Appears uncomfortable, obese, unkempt, Behavior is calm, cooperative. Pain: Complains of pain in right breast Pain radiates to back Pain currently is 7 out of 10 on a pain scale. at worst was 10 out of 10 on a pain scale. Cardiovascular: Capillary refill < 3 seconds Rhythm is sinus rhythm. Historical: - Allergies: 23:44 Ceclor; kl - Home Meds: 23:44 atorvastatin 20 mg Oral tab 1 tab once daily [Active]; pantoprazole 40 mg Oral grps 1 kl packet once daily [Active]; - PMHx: 23:44 Anxiety; Diverticulitis; Gastroesophageal reflux disease; Hypercholesterolemia; kl - PSHx: 23:44 Adenoid excision; section; Tonsillectomy; kl - Immunization history:: Adult Immunizations not up to date. - Social history:: Smoking status: Patient reports the use of cigarette tobacco products, smokes one-half pack cigarettes per day. Screenin/28 01:01 [facility] ED Fall Risk Assessment (Adult) History of falling in the last 3 months, jb4 including since admission No falls in past 3 months (0 pts) Confusion or Disorientation No (0 pts) Intoxicated or Sedated No (0 pts) Impaired Gait No (0 pts) Mobility Assist Device Used No (0 pt) Altered Elimination No (0 pt) Score/Fall Risk Level 0 - 2 = Low Risk Oriented to surroundings, Maintained a safe environment. Abuse screen: Denies threats or abuse. Nutritional screening: No deficits noted. Tuberculosis screening: No symptoms or risk factors identified. Assessment: 00:02 General: Appears in no apparent distress. comfortable, Behavior is calm, cooperative, jb4 appropriate for age. Pain: Complains of pain in chest Pain does not radiate. Pain currently is 8 out of 10 on a pain scale. Quality of pain is described as stabbing, Pain began 2-3 days ago. Neuro: Level of Consciousness is awake, alert, obeys commands, Oriented to person, place, time, situation. Cardiovascular: Patient's skin is warm and dry. Respiratory: Reports shortness of breath at rest Airway is patent Respiratory effort is even, unlabored, Respiratory pattern is regular, symmetrical. GI: No signs and/or symptoms were reported involving the gastrointestinal system. : No signs and/or symptoms were reported regarding the genitourinary system. EENT: No signs and/or symptoms were reported regarding the EENT system. Derm: Skin is intact, Skin is pink, warm \T\ dry. Musculoskeletal: Circulation, motion, and sensation intact. Range of motion:. 01:01 Reassessment: Patient appears in no apparent distress at this time. Patient and/or jb4 family updated on plan of care and expected duration. Pain level reassessed. Patient is alert, oriented x 3, equal unlabored respirations, skin warm/dry/pink. Vital Signs: 09/11 23:43 BP 141 / 66; Pulse 97; Resp 20; Temp 97(O); Pulse Ox 98% on R/A; kl 09/12 01:01 BP 119 / 59; Pulse 87; Resp 16; Pulse Ox 100% on R/A; jb4 ED Course: 09/11 23:33 Patient arrived in ED. ja2 23:37 [facility] kb 23:37 Lee Regalado DO is Attending Physician. kb 23:44 Triage completed. kl 23:48 EKG done, by ED staff, reviewed by Rafia LEONARD. ls5 23:58 Inserted saline lock: 20 gauge in right forearm, using aseptic technique. Blood vc1 collected. 09/12 00:01 Lenny Gomez, RN is Primary Nurse. jb4 00:02 Patient maintains SpO2 saturation greater than 95% on room air. jb4 00:02 Patient has correct armband on for positive identification. Placed in gown. Bed in low jb4 position. Call light in reach. Side rails up X 1. Client placed on continuous cardiac and pulse oximetry monitoring. NIBP monitoring applied. 01:01 Assist provider with bone marrow aspiration. IV discontinued, intact, bleeding jb4 controlled, No redness/swelling at site. Pressure dressing applied. 02:04 Chest Single View XRAY In Process Unspecified. EDMS Administered Medications: 00:01 Drug: DuoNeb (albuterol 2.5 mg, ipratropium 0.5 mg) (3:1) (2.5 mg - 0.5 mg) 3 ml Route: jb4 Nebulizer; 01:01 Follow up: Response: No adverse reaction jb4 00:01 Drug: SOLU-Medrol (methylPrednisoLONE) 125 mg Route: IVP; Site: right antecubital; jb4 01:01 Follow up: Response: No adverse reaction jb4 01:00 Drug: Ketorolac 15 mg Route: IVP; Site: right antecubital; jb4 01:00 Follow up: Response: Medication administered at discharge. jb4 Medication: 00:02 VIS not applicable for this client. jb4 Outcome: 00:46 Discharge ordered by . jolynn 01:01 Discharged to home ambulatory. jb4 01:01 Condition: stable 01:01 Discharge instructions given to patient, Instructed on discharge instructions, follow up and referral plans. no drinking with medication, no driving heavy equipment, medication usage, Demonstrated understanding of instructions, follow-up care, medications, Prescriptions given X 4. 01:02 Patient left the ED. jb4 Signatures: Dispatcher [employer] EDMS Rafia Parks, AISHA ALICEA-Hilary Howard RN RN kl Bryson, James, RN RN jb4 Rena Orellana Vanessa, RN RN vc1 Geovanny Orlando5 Corrections: (The following items were deleted from the chart) 00:19 00:02 Pain: Complains of pain in chest Pain does not radiate. Pain currently is 8 out jb4 of 10 on a pain scale. jb4
[2022-09-12] MEDS ORDERED: KETOROLAC 30 MG/ML INJ ONE (00:55)
[2022-09-12 01:31] VITALS: TEMP 97
[2022-09-12 01:32] VITALS: BP 119/59; O2SAT 100
--- NOTE | 2022-09-13 20:15 | RAD REPORT ---
EXAM DESCRIPTION: RAD - Chest Single View - 09/12/2022 12:29 am CLINICAL HISTORY: The patient is 31 years old and is Female; CHEST PAIN TECHNIQUE: Frontal view of the chest. COMPARISON: No relevant prior studies available. FINDINGS: Lungs: Prominent interstitial markings suggestive of interstitial edema. No consolidatio n. Pleural space: Unremarkable. No pneumothorax. Heart: Unremarkable. Mediastinum: Unremarkable. Bones/joints: Unremarkable. IMPRESSION: Prominent interstitial markings suggestive of interstitial edema. No consolidation. Electronically signed by: Joni Everett MD 09/12/2022 12:39 AM SOLUTION DEVELOPER Due to temporary technical issues with the PACS/Fluency reporting system, reports are being signed by the in house radiologists without review as a courtesy to insure prompt reporting. The interpreting radiologist is fully responsible for the content of the report.
--- NOTE | 2022-09-15 17:08 | EKG ---
Test Date: 2022-09-11 Test Time: 23:45:13 Kennel Helper: URVASHI MEASUREMENT RESULTS: Intervals: Rate: 78 LA: 116 QRSD: 90 QT: 370 QTc: 421 Jones: P: 5 LA: 116 QRS: 48 T: 42 INTERPRETIVE STATEMENTS: Normal sinus rhythm Normal ECG Compared to ECG 08/01/2020 14:01:32 No significant changes Electronically Signed On 09-15-22 16:59:46 RETICLE PRINTER by Mikhail Padilla
== END 2022-09-12 01:02 | disposition home or self-care (01) ==
LOC: ER 23:31
DX: R07.1 Chest pain on breathing (principal); R06.2 Wheezing; F17.210 Nicotine dependence, cigarettes, uncomplicated
CPT/HCPCS: 36415; 71045; 80048; 84484; 85025; 93005; 94640; 96374; 96375; 99285; J2930; J7613; J7644

== ENCOUNTER → 2023-09-11 | Emergency (ER) | payer SELFPAY ==
[~2023-09-11] MED LIST: CIPROFLOXACIN HCL 500 MG TAB ONE; DICYCLOMINE HCL 20 MG/2 ML AMP IM ONE; metroNIDAZOLE 500 MG TABLET ONE
[2023-09-12 01:14] LABS: Absolute Lymphocytes (CBC) 4.9 K/uL (0.7-4.9); Hematocrit 36.6 % (36.0-45.0); Lymphocytes % 31.4 % (15.3-44.8); MCV 71.7 fL (80-100); MPV 7.9 fL (7.6-11.3); Platelets 368 thou/uL (152-406)
[2023-09-12 01:17] LABS: Specific Gravity 1.006 (1.005-1.030); Urine Bilirubin NEGATIVE (Negative); Urine Blood Negative (Negative); Urine Clarity Clear (Clear); Urine Color Colorless (Yellow); Urine Glucose NEGATIVE (Negative); Urine Protein NEGATIVE (Negative); Urine Urobilinogen Normal (Normal); Urine pH 5.5 (5.0-7.0)
[2023-09-12 01:20] LABS: Specific Gravity 1.013 (1.005-1.030)
[2023-09-12 02:05] LABS: Albumin 3.2 g/dL (3.4-5.0); Bilirubin Total 0.2 mg/dL (0.2-1.0); Potassium 3.7 mEq/L (3.5-5.1); Protein, Total 7.1 g/dL (6.4-8.2)
--- NOTE | 2023-09-12 03:48 | ER ---
Nurse's Notes [facility] Name: Eli Cisneros Age: 32 yrs Sex: Female : 1990 Arrival Date: 09/11/2023 Time: 23:10 Bed 7 Private MD: Diagnosis: Left sided colitis with rectal bleeding Presentation: 09/11 23:26 Chief complaint: Patient states: I've been having abdominal pain and rectal bleeding vc1 for the last 3 days, and have been vomiting for a month. Coronavirus screen: Vaccine status: Patient reports being unvaccinated. Client denies travel out of the [place] in the last 14 days. At this time, the client does not indicate any symptoms associated with coronavirus-19. Ebola Screen: Patient negative for fever greater than or equal to 101.5 degrees Fahrenheit, and additional compatible Ebola Virus Disease symptoms Patient denies exposure to infectious person. Patient denies travel to an Ebola-affected area in the 21 days before illness onset. No symptoms or risks identified at this time. Initial Sepsis Screen: Does the patient meet any 2 criteria? No. Patient's initial sepsis screen is negative. Does the patient have a suspected source of infection? No. Patient's initial sepsis screen is negative. Risk Assessment: Do you want to hurt yourself or someone else? Patient reports no desire to harm self or others. Onset of symptoms was September 08, 2023. 23:26 Method Of Arrival: Ambulatory vc1 23:26 Acuity: AMBER 3 vc1 Triage Assessment: 23:30 General: Appears in no apparent distress. uncomfortable, obese, Behavior is calm, vc1 cooperative, appropriate for age. Pain: Complains of pain in right lower quadrant and left lower quadrant Pain does not radiate. Pain currently is 6 out of 10 on a pain scale. Quality of pain is described as aching, sharp, Pain began 2-3 days ago. Is continuous, Also complains of rectal bleeding and vomiting. EENT: No deficits noted. No signs and/or symptoms were reported regarding the EENT system. Neuro: Level of Consciousness is awake, alert, obeys commands, Oriented to person, place, time, situation, Appropriate for age. Cardiovascular: No deficits noted. Respiratory: Airway is patent Respiratory effort is even, unlabored, Respiratory pattern is regular, symmetrical. GI: Reports lower abdominal pain, rectal bleeding, nausea, vomiting. : No deficits noted. No signs and/or symptoms were reported regarding the genitourinary system. Derm: No deficits noted. No signs and/or symptoms reported regarding the dermatologic system. Musculoskeletal: No deficits noted. No signs and/or symptoms reported regarding the musculoskeletal system. 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 - Social history:: Smoking status: Patient reports the use of cigarette tobacco products, 08/19 PPD. Screenin:[facility] ED Fall Risk Assessment (Adult) History of falling in the last 3 months, vc1 including since admission No falls in past 3 months (0 pts) Confusion or Disorientation No (0 pts) Intoxicated or Sedated No (0 pts) Impaired Gait No (0 pts) Mobility Assist Device Used No (0 pt) Altered Elimination Yes (1 pt) Score/Fall Risk Level 0 - 2 = Low Risk Oriented to surroundings, Maintained a safe environment, Educated pt \T\ family on fall prevention, incl call for assistance when getting out of bed. Abuse screen: Denies threats or abuse. Nutritional screening: No deficits noted. Tuberculosis screening: No symptoms or risk factors identified. Assessment: 09/12 00:24 Reassessment: CT called and notified pt completed oral contrast at this time. Pt la4 notified CT will be completed 2 hours from the time she completed the oral contrast. IV started to the left wrist w/ blood collected and sent for processing. Will continue monitoring and updating w/ changes in plan of care. Reassessment: No pain medications ordered at this time. General: Appears uncomfortable, laying on right side holding stomach. Behavior is calm, cooperative. Pain:. Neuro: No deficits noted. [place]aves Agitation-Sedation Scale (RASS): 0 - Alert and Calm Level of Consciousness is awake, alert, obeys commands, Oriented to person, place, time, situation, Appropriate for age. Cardiovascular: No deficits noted. Denies chest pain, Heart tones S1 S2 Capillary refill < 3 seconds is brisk fingers Patient's skin is warm and dry. Pulses are all present. Edema is absent. Respiratory: No deficits noted. Airway is patent Respiratory effort is even, unlabored, Breath sounds are clear bilaterally. GI: Abdomen is round non-distended, obese, Bowel sounds present X 4 quads. Abd is soft Abdomen is tender to palpation in right upper quadrant and left upper quadrant Reports intermittent nausea and vomiting. 04:15 Reassessment: Patient appears in no apparent distress at this time. No changes from lg3 previously documented assessment. Patient and/or family updated on plan of care and expected duration. Pain level reassessed. Patient is alert, oriented x 3, equal unlabored respirations, skin warm/dry/pink. Patient states feeling better. Patient states symptoms have improved. Vital Signs: 09/11 23:26 BP 154 / 90; Pulse 75; Resp 16; Temp 97.9; Pulse Ox 97% ; Weight 117.93 kg; Height 5 vc1 ft. 1 in. ; Pain 6/10; 09/12 04:15 BP 141 / 87; Pulse 71; Resp 17 S; Pulse Ox 98% on R/A; lg3 09/11 23:26 Body Mass Index 49.13 (117.93 kg, 154.94 cm) vc1 09/11 23:26 Pain Scale: Adult vc1 [place] Score: 00:24 Eye Response: spontaneous(4). Motor Response: obeys commands(6). Verbal Response: la4 oriented(5). Total: 15. ED Course: 09/11 23:15 Patient arrived in ED. jj6 23:27 Nathen Wilkes PA is PHCP. cp 23:27 Nathen Olivares MD is Attending Physician. cp 23:29 Triage completed. vc1 23:32 Arm band placed on right wrist. vc1 23:33 Patient has correct armband on for positive identification. Placed in gown. Bed in low vc1 position. Call light in reach. Pulse ox on. NIBP on. 09/12 00:24 No apparent distress. Awaiting lab results. la4 00:24 Provided Education on: plan of care . la4 00:24 CBC with Diff Sent. la4 00:24 CMP Sent. la4 00:24 Lipase Sent. la4 00:24 Test, Urine Sent. la4 00:24 Urinalysis w/ reflexes Sent. la4 00:24 No provider procedures requiring assistance completed. Inserted saline lock: 20 gauge la4 in left wrist, using aseptic technique. Blood collected. 03:00 CT Abd/Pelvis - PO and IV Contrast In Process Unspecified. EDMS 03:47 Colt Childers MD is Referral Physician. cp 04:16 IV discontinued, intact, bleeding controlled, No redness/swelling at site. Pressure lg3 dressing applied. Administered Medications: 04:15 Drug: metroNIDAZOLE PO 500 mg PO once Route: PO; lg3 04:15 Follow up: Response: No adverse reaction lg3 04:15 Drug: Ciprofloxacin PO 500 mg PO once Route: PO; lg3 04:15 Follow up: Response: No adverse reaction lg3 04:15 Drug: Dicyclomine IM 20 mg IM once Route: IM; Site: left deltoid; lg3 04:15 Follow up: Response: No adverse reaction lg3 Medication: 09/11 23:32 VIS not applicable for this client. vc1 Outcome: 09/12 03:47 Discharge ordered by . cp 04:16 Discharged to home ambulatory, lg3 04:16 Condition: stable 04:16 Discharge instructions given to patient, Instructed on discharge instructions, follow up and referral plans. medication usage, Demonstrated understanding of instructions, follow-up care, medications, Prescriptions given X 4, 04:17 Patient left the ED. lg3 Signatures: Dispatcher [employer] EDCA Nathen Wilkes PA PA cp Able, Lacie, RN RN lg3 Eli Solitario jj6 Denae Madrid RN RN vc1 Eduardo Guerrero RN RN la4
--- NOTE | 2023-09-12 03:48 | EDPHYS ---
Physician Documentation [facility] Name: Eli Cisneros Age: 32 yrs Sex: Female : 1990 Arrival Date: 09/11/2023 Time: 23:10 Bed 7 Private MD: ED Physician Nathen Olivares HPI: 09/11 23:35 This 32 yrs old Female presents to ER via Ambulatory with complaints of Abdominal Pain, cp Rectal Bleeding. 23:35 The patient presents with abdominal pain that is diffuse. cp 23:35 Onset: The symptoms/episode began/occurred 3 day(s) ago. The symptoms do not radiate. cp Associated signs and symptoms: Pertinent positives: blood in stools, diarrhea, vomiting times 1 month, Pertinent negatives: chest pain, constipation, dysuria, fever. The symptoms are described as crampy. Severity of pain: in the emergency department the pain is unchanged despite home interventions. 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 - Social history:: Smoking status: Patient reports the use of cigarette tobacco products, 08/19 PPD. ROS: 23:40 Respiratory: Negative for cough, shortness of breath, wheezing, cp 23:40 Eyes: Negative for injury, pain, redness, and discharge, cp 23:40 Constitutional: Negative for body aches, chills, fever, poor PO intake, weight loss, 23:40 ENT: Negative for drainage from ear(s), ear pain, sore throat, difficulty swallowing, difficulty handling secretions, 23:40 Cardiovascular: Negative for chest pain, 23:40 Abdomen/GI: Positive for abdominal pain, nausea, vomiting, diarrhea, rectal bleeding, Negative for constipation, abdominal distension, 23:40 Back: Negative for pain at rest, pain with movement, 23:40 : Negative for urinary symptoms, vaginal bleeding, 23:40 Neuro: Negative for altered mental status, dizziness, headache, syncope, weakness, 23:40 All other systems are negative, Exam: 23:45 Constitutional: The patient appears in no acute distress, alert, awake, non-toxic, well cp developed, well nourished, obese, uncomfortable, 23:45 Head/Face: Normocephalic, atraumatic. cp 23:45 Eyes: Periorbital structures: appear normal, Conjunctiva: normal, no exudate, no injection, Sclera: no appreciated abnormality, Lids and lashes: appear normal, bilaterally, 23:45 ENT: External ear(s): are unremarkable, Nose: is normal, Mouth: Lips: moist, Oral mucosa: pink and intact, moist, Posterior pharynx: is normal, airway is patent, no erythema, no exudate, 23:45 Chest/axilla: Inspection: normal, 23:45 Cardiovascular: Rate: normal, Rhythm: regular, 23:45 Respiratory: the patient does not display signs of respiratory distress, Respirations: normal, no use of accessory muscles, no retractions, labored breathing, is not present, Breath sounds: are clear throughout, no decreased breath sounds, no stridor, no wheezing, 23:45 Abdomen/GI: Inspection: obese Bowel sounds: active, all quadrants, Palpation: soft, in all quadrants, moderate abdominal tenderness, in all quadrants, rebound tenderness, is not appreciated, involuntary guarding, is not appreciated, 23:45 Back: pain, is absent, ROM is normal, 23:45 Neuro: Orientation: to person, place \T\ time. Mentation: is normal, Vital Signs: 23:26 BP 154 / 90; Pulse 75; Resp 16; Temp 97.9; Pulse Ox 97% ; Weight 117.93 kg; Height 5 vc1 ft. 1 in. ; Pain 01/23; 09/12 04:15 BP 141 / 87; Pulse 71; Resp 17 S; Pulse Ox 98% on R/A; lg3 09/11 23:26 Body Mass Index 49.13 (117.93 kg, 154.94 cm) vc1 09/11 23:26 Pain Scale: Adult vc1 [place] Score: 00:24 Eye Response: spontaneous(4). Motor Response: obeys commands(6). Verbal Response: la4 oriented(5). Total: 15. MDM: 09/11 23:27 Patient medically screened. 09/12 03:45 Data reviewed: vital signs, nurses notes, lab test result(s), radiologic studies, CT cp scan. 03:45 Consideration of Admission/Observation Escalation of care including cp admission/observation considered. I considered the following discharge prescriptions or medication management in the emergency department Medications were administered in the Emergency Department. See MAR. Care significantly affected by the following chronic conditions: Obesity, diverticulitis. 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 ED course: VSS. Discussed admission for continued treatment vs discharge with oral antibiotics. Patient would treatment with oral antibiotics and will return worsening symptoms. Patient reports last BM here in ED negative for blood. 09/12 00:01 Order name: CBC with Diff; Complete Time: 02:10 cp 09/12 02:11 Interpretation: Normal except: WBC 15.50; RBC 5.10; HGB 11.8; MCV 71.7; MCH 23.2; RDW cp 18.3; NEUT A 8.8; MNA 1.4. 09/12 00:01 Order name: CMP; Complete Time: 02:10 cp 09/12 02:47 Interpretation: ALB 3.2; GLOB 3.9; A/G 0.8; Reviewed. 09/12 00:01 Order name: Lipase; Complete Time: 02:10 cp 09/12 00:01 Order name: Test, Urine; Complete Time: 02:10 cp 09/12 00:01 Order name: Urinalysis w/ reflexes; Complete Time: 02:10 cp 09/12 00:01 Order name: CT Abd/Pelvis - PO and IV Contrast cp 09/12 00:01 Order name: IV Saline Lock; Complete Time: 00:24 cp 09/12 00:01 Order name: Labs collected and sent; Complete Time: 00:24 cp Administered Medications: 04:15 Drug: metroNIDAZOLE PO 500 mg PO once Route: PO; lg3 04:15 Follow up: Response: No adverse reaction lg3 04:15 Drug: Ciprofloxacin PO 500 mg PO once Route: PO; lg3 04:15 Follow up: Response: No adverse reaction lg3 04:15 Drug: Dicyclomine IM 20 mg IM once Route: IM; Site: left deltoid; lg3 04:15 Follow up: Response: No adverse reaction lg3 Disposition Summary: 09/12/23 03:47 Discharge Ordered Notes: Location: Home cp Problem: new cp Symptoms: have improved cp Condition: Stable cp Diagnosis - Left sided colitis with rectal bleeding cp Followup: cp - With: Colt Childers MD - When: 1 week - Reason: Recheck today's complaints Discharge Instructions: - Discharge Summary Sheet cp - Colitis cp Forms: - Medication Reconciliation Form cp - Thank You Letter cp - Antibiotic Education cp - Prescription Opioid Use cp - Patient Portal Instructions cp - Leadership Thank You Letter cp Prescriptions: - Zofran 4 mg Oral Tablet - take 1 tablet ORAL route every 12 hours As needed; 20 tablet; Refills: 0, cp Product Selection Permitted - Cipro 500 mg Oral tablet - take 1 tablet ORAL route every 12 hours for 7 days; 20 tablet; Refills: 0, cp Product Selection Permitted - Metronidazole 500 mg Oral Tablet - take 1 tablet ORAL route every 8 hours; 30 tablet; Refills: 0, Product cp Selection Permitted - dicyclomine 20 mg Oral tablet - take 1 tablet ORAL route 3 times per day; 30 tablet; Refills: 0, Product cp Selection Permitted Signatures: Dispatcher [employer] EDIA Nathen Wilkes PA PA cp Able, Lacie, RN RN lg3 Denae Madrid RN RN vc1 Eduardo Guerrero RN RN la4
[2023-09-12 07:42] VITALS: BP 141/87; TEMP 97.9; O2SAT 98
--- NOTE | 2023-09-13 11:45 | RAD REPORT ---
EXAM DESCRIPTION: CT - Abdomen Pelvis W Contrast - 09/12/2023 7:19 am CLINICAL HISTORY: The patient is 32 years old and is Female; rectal bleeding;Abd pain TECHNIQUE: Axial computed tomography images of the abdomen and pelvis with intravenous contrast. S agittal and coronal reformatted images were created and reviewed. This CT exam was performed using one or more of the following dose reduction techniques: automated exposure control, adjustment of t he mA and/or kV according to patient size, and/or use of iterative reconstruction technique. COMPARISON: No relevant prior studies available. FINDINGS: Lung bases: Unremarkable. No mass. No consolidation. ABDOMEN: Liver: Hepatomegaly. Gallbladder and bile ducts: Unremarkable. No calcified stones. No ductal dilation. Pancreas: Unremarkable. No mass. No ductal dilation. Spleen: Unremarkable. No splenomegaly. Adrenals: Unremarkable. No mass. Kidneys and ureters: Unremarkable. No solid mass. No hydronephrosis. Stomach and bowel: Suggestion of some mucosal thickening involving the rectosigmoid/left colon. Sigmoid diverticula. No obstruction. PELVIS: Appendix: The appendix is normal. Bladder: Unremarkable. Reproductive: Unremarkable as visualized. ABDOMEN and PELVIS: Intraperitoneal space: Unremarkable. No free air. No significant fluid collection. Bones/joints: No acute fracture. No dislocation. Soft tissues: Unremarkable. Vasculature: Unremarkable. No abdominal aortic aneurysm. Lymph nodes: Unremarkable. No enlarged lymph nodes. IMPRESSION: 1. Hepatomegaly. 2. Suggestion of some mucosal thickening involving the rectosigmoid/left colon. Correlate with an y concern for colitis. 3. Sigmoid diverticula. 4. The appendix is normal. 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 The interpreting r adiologist is fully responsible for the content of the report.
== END ==
LOC: ER 23:10
DX: K52.89 Other specified noninfective gastroenteritis and colitis (principal); K62.5 Hemorrhage of anus and rectum; R10.32 Left lower quadrant pain; R10.31 Right lower quadrant pain; R11.10 Vomiting, unspecified; Z88.8 Allergy status to other drugs, medicaments and biological substances; Z72.0 Tobacco use; K57.92 Diverticulitis of intestine, part unspecified, without perforation or abscess without bleeding; K21.9 Gastro-esophageal reflux disease without esophagitis; E78.00 Pure hypercholesterolemia, unspecified
CPT/HCPCS: 74177; Q9967